=== PATIENT | female | born 1935 | race Caucasian/White ===

== ENCOUNTER 2016-05-20 19:09 | Emergency (ER) | payer MEDICARE, OTHER ==
--- NOTE | 2016-05-20 21:10 | REPUSA ---
Clinical history: Pain, swelling. Findings: The right common femoral, superficial femoral, popliteal, and other deep venous structures compress normally and demonstrate normal color Doppler flow. Normal venous waveforms with augmentatio n are seen. Impression: No evidence of deep vein thrombosis in the right femoral popliteal venous system.
[2016-05-20] MEDS ORDERED: ACETAMINOPHEN 325 MG TAB As Ordered ONE (22:46)
--- NOTE | 2016-05-20 22:56 | EDDOCDS ---
Nurse's Notes [facility] Name: Dariana Ribera Age: 80 yrs Sex: Female : 1935 Arrival Date: 05/20/2016 Time: 19:09 Bed PR Private MD: NO PRIMARY PHYSICIAN, . Diagnosis: Pain in right leg Presentation: 05/20 19:17 Presenting complaint: Patient states: Pain that began in right hip radiating down her lf1 leg on Friday night, states pain is not getting better and she has noticed swelling in her right leg. Pain is currently 4/10 while sitting and 7/10 while walking. Pt reports no injury. Adult Sepsis Screening: The patient does not have new or worsening altered mentation. Patient's respiratory rate is less than 22. Systolic blood pressure is greater than 100. Patient has a qSOFA score of 0- Negative Sepsis Screen. Suicide/Homicide risk assessment- the patient denies having any suicidal and/or homicidal ideations and does not present with any other emotional, behavioral or mental health complaints. Status: Patient is not a pharmacy services representative or dependent. Transition of care: patient was not received from another setting of care. 19:17 Acuity: NATHANAEL Level 3 lf1 19:17 Method Of Arrival: Walkin/Carried/Asstd lf1 Triage Assessment: 19:24 General: Appears in no apparent distress, comfortable, Behavior is cooperative. Pain: lf1 Location: right hip and leg Pain currently is 4 out of 10 on a pain scale. At worst was 7 out of 10 on a pain scale. Neurological: Level of Consciousness is awake, alert, Oriented to person, place, time. Cardiovascular: Chest pain is denied. Respiratory: Respiratory effort is even, unlabored. GI: Denies nausea, vomiting. Derm: Parent/caregiver reports the patient having swelling in right leg/thigh. Injury Description: No known injury. Historical: - Allergies: No known drug Allergies; - Home Meds: 1. atorvastatin 10 mg oral tab 2. levothyroxine 50 mcg oral cap 3. Celexa 20 mg oral tab 4. Flonase 50 mcg/actuation Nasal spsn 1 spray 2 times per day 5. omeprazole 20 mg Oral cpDR 1 cap once daily 6. tramadol 50 mg Oral tab Unknown every 12 as needed - PMHx: High Cholesterol; Hypothyroidism; Chronic Back pain; Osteoporosis; - PSHx: Cholecystectomy; Knee surgery; Hysterectomy; - Social history: Smoking status: Patient states former smoker of tobacco. No barriers to communication noted, The patient speaks fluent Scottish, Speaks appropriately for age, Preferred Language: Scottish. - Family history: Not pertinent. - : The pt / caregiver states he / she is not on anticoagulants. Home medication list is obtained from the patient, Unable to Verify Home Med List with the patient / caregiver. Note Pt reports that she is unsure of her meds but uses [facility] in [place]. - Exposure Risk Screening:: None identified. Screenin:26 Screening information is obtained from the patient. Fall risk: No risks identified. lf1 Assistance ADL's: requires no assistance with activities of daily living. Abuse/DV Screen: The patient / caregiver reports he/she is: not in a situation that causes fear, pain or injury. Nutritional screening: Gluten Free. Advance Directives: Currently, there is a health care proxy, Teo Ribera [phone]. home support is adequate. Assessment: 22:52 General: Appears in no apparent distress, comfortable, well nourished, well groomed, lf1 Behavior is appropriate for age, cooperative, pleasant. Pain: Location: right leg Pain currently is 4 out of 10 on a pain scale. Neurological: Level of Consciousness is awake, alert, obeys commands, Oriented to person, place, time. Respiratory: No deficits noted. Derm: Skin is pink, warm & dry. normal. Vital Signs: 19:13 BP 142 / 67; Pulse 83; Resp 18 S; Temp 97.8(O); Pulse Ox 96% on R/A; Weight 87.09 kg gr2 (R); Height 5 ft. 0 in. (152.40 cm) (R); Pain 6/10; 22:45 Pulse 69; Resp 18; Temp 98.6(TE); Pulse Ox 96% on R/A; Pain 4/10; ar3 22:52 BP 170 / 80; Pulse 69; Resp 18; Temp 98.6; Pulse Ox 98% ; Pain 4/10; lf1 22:52 lf1 19:13 Body Mass Index 37.50 (87.09 kg, 152.40 cm) gr2 22:52 Provider aware of pt's BP lf1 Vitals: 19:13 Log In Time: May 20, 2016 at 19:13. gr2 ED Course: 19:11 Patient visited by Ozzy Johnson. gr2 19:11 Patient moved to Waiting gr2 19:12 NO PRIMARY PHYSICIAN, . is Private Physician. gr2 19:13 Patient visited by Ozzy Johnson. gr2 19:14 Patient moved to Pre RCE gr2 19:19 Triage Initiated lf1 19:31 [address] [facility] in [place] to confirm pt. medications [phone]. lf1 20:10 Patient moved to Triage 1 ms18 20:13 Chuck Leslie PA-C is PHCP. jk8 20:13 Francois Lai DO is Attending Physician. jk8 20:13 Patient visited by Chuck Leslie PA-C. jk8 20:34 Patient moved to TR4 ms18 20:50 Patient moved to Ultrasound dmg 21:06 Patient moved to TR4 dmg 21:07 Patient moved to Radiology dmg 21:11 Patient moved to TR4 jada 21:24 [facility] Payment Agreement was scanned into [employer] and attached to record. gjb 21:41 US Lower Extremity R/O DVT Returned. EDMS 22:42 Patient moved to PR1 / 25 ar3 22:46 Patient visited by Peg Parson PCA. ar3 22:52 The patient / caregiver is instructed regarding the plan of care and ED course. lf1 Accompanied by Significant Other, Patient has correct armband on for positive identification. Property sent home with patient. :Personal belongings accompany Pt. 22:52 No IV's were initiated during this patient's visit. No procedures done that require lf1 assistance. Administered Medications: 22:52 Drug: Acetaminophen 650 mg [acetaminophen 325 mg tablet (2 tabs)] Route: PO; lf1 Order Results: Radiology Order: US Lower Extremity R/O DVT Test: US Lower Extremity R/O DVT REASON FOR EXAMINATION: leg pain, acute; ; Clinical history: Pain, swelling.; Findings: The right common femoral, superficial femoral, popliteal, and other deep venous structures; compress normally and demonstrate normal color Doppler flow. Normal venous waveforms with augmentatio; n are seen.; Impression:; No evidence of deep vein thrombosis in the right femoral popliteal venous system.; ; Outcome: 22:41 Discharge ordered by Provider. jk8 22:52 Discharge Assessment: Patient awake, alert and oriented x 3. No cognitive and/or lf1 functional deficits noted. Patient verbalized understanding of disposition instructions. patient administered narcotics - no. The following High Risk Discharge criteria are identified: None. Discharged to home ambulatory. Condition: good Condition: stable Condition: improved. Discharge instructions given to patient, Instructed on discharge instructions, follow up and referral plans. medication usage, Demonstrated understanding of instructions, medications, Pt was receptive of discharge instructions/ teaching. Prescriptions given X 1. Ultrasound Study completed. 22:54 Patient left the ED. lf1 Signatures: Dispatcher [employer] EDMS Lucho Carpio Deanne dmg Ford, LisaRN RN lf1 Peg Parson, STONE SETTER STONE SETTER ar3 Ozzy Johnson gr2 Mariya Rivera RN RN ms18 Chuck Leslie PA-C PALeila jk8 Yue Christian Corrections: (The following items were deleted from the chart) 19:36 19:24 Home Meds: atorvastatin 40 mg oral tab 1 tab once daily; lf1 lf1 19:36 19:24 Home Meds: Levothyroxine Oral once daily; lf1 lf1 19:36 19:24 Home Meds: Celexa 10 mg Oral tab 1 tab once daily; lf1 lf1 22:54 22:52 Pain: Location: left leg Pain currently is 4 out of 10 on a pain scale. lf1 lf1 MTDD
--- NOTE | 2016-05-20 22:56 | EDDOCDS ---
Physician Documentation [facility] Name: Dariana Ribera Age: 80 yrs Sex: Female : 1935 Arrival Date: 05/20/2016 Time: 19:09 Bed PR Private MD: NO PRIMARY PHYSICIAN, . Disposition: 05/20/16 22:41 Discharged to Home/Self Care. Impression: Pain in right leg. - Condition is Stable. - Prescriptions for Tylenol 325 mg Oral Tablet - take 2 tablet by ORAL route every 6 hours as needed; 1 bottle. - Medication Reconciliation, Local Pharmacy Hours form. - Follow up: Emergency Department; When: As soon as possible; Reason: Worsening of conditions. Follow up: Private Physician; When: 1 - 2 days; Reason: Recheck today's complaints. - Problem is new. - Symptoms are unchanged. Historical: - Allergies: No known drug Allergies; - Home Meds: 1. atorvastatin 10 mg oral tab 2. levothyroxine 50 mcg oral cap 3. Celexa 20 mg oral tab 4. Flonase 50 mcg/actuation Nasal spsn 1 spray 2 times per day 5. omeprazole 20 mg Oral cpDR 1 cap once daily 6. tramadol 50 mg Oral tab Unknown every 12 as needed - PMHx: High Cholesterol; Hypothyroidism; Chronic Back pain; Osteoporosis; - PSHx: Cholecystectomy; Knee surgery; Hysterectomy; - Social history: Smoking status: Patient states former smoker of tobacco. No barriers to communication noted, The patient speaks fluent Turkish, Speaks appropriately for age, Preferred Language: Turkish. - Family history: Not pertinent. - : The pt / caregiver states he / she is not on anticoagulants. Home medication list is obtained from the patient, Unable to Verify Home Med List with the patient / caregiver. Note Pt reports that she is unsure of her meds but uses [facility] in [place]. - Exposure Risk Screening:: None identified. Vital Signs: 05/20 19:13 BP 142 / 67; Pulse 83; Resp 18 S; Temp 97.8(O); Pulse Ox 96% on R/A; Weight 87.09 kg / gr2 192 lbs (R); Height 5 ft. 0 in. (152.40 cm) (R); Pain 6/10; 22:45 Pulse 69; Resp 18; Temp 98.6(TE); Pulse Ox 96% on R/A; Pain 4/10; ar3 22:52 BP 170 / 80; Pulse 69; Resp 18; Temp 98.6; Pulse Ox 98% ; Pain 4/10; lf1 22:52 lf1 19:13 Body Mass Index 37.50 (87.09 kg, 152.40 cm) gr2 22:52 Provider aware of pt's BP lf1 MDM: 20:24 US Lower Extremity R/O DVT Ordered. EDMS 20:24 Hip,AP,LAT to include Pelvis Ordered. EDMS 20:26 Femur Ordered. EDMS 20:26 Spine. Lumbosacral, Complete Ordered. EDMS 21:17 Financial registration complete. gjb 21:24 [facility] Payment Agreement was scanned into [employer] and attached to record. gjb 22:29 US Lower Extremity R/O DVT Reviewed. jk8 22:37 Hip,AP,LAT to include Pelvis Reviewed. jk8 22:38 Femur Reviewed. jk8 22:38 Spine. Lumbosacral, Complete Reviewed. jk8 22:42 Acetaminophen Tablet 650 mg PO once ordered. jk8 Administered Medications: 22:52 Drug: Acetaminophen 650 mg [acetaminophen 325 mg tablet (2 tabs)] Route: PO; lf1 Signatures: Dispatcher [employer] EDMS Dottie Gonzales RN RN lf1 Chuck Leslie PA-C PA-C jk8 Beck, Gabriela gjb The chart was reviewed and I authenticate all verbal orders and agree with the evaluation and treatment provided.Corrections: (The following items were deleted from the chart) 19:36 19:24 Home Meds: atorvastatin 40 mg oral tab 1 tab once daily; 1 lf1 19:36 19:24 Home Meds: Levothyroxine Oral once daily; 1 lf1 19:36 19:24 Home Meds: Celexa 10 mg Oral tab 1 tab once daily; 1 lf1 Attachments: 21:24 [facility] Payment Agreement gjb MTDD
--- NOTE | 2016-05-21 09:09 | REP ---
Lumbar spine radiographs: Five views. History: Right leg radiculopathy. Comparison study December 09, 2014. Findings: There are clips in the right upper and right lower quadrant of the abdomen as before. A dextroconvex rotoscoliotic curve is seen in the lumbar spine unchanged. There is diffuse degenerative disc disease and osteoarthritic facet changes are noted status quo as well. No fracture or collapse is seen. There are vacuum phenomenon in each of the lumbar discs. Osteoarthritic facet changes are most pronounced at L5-S1 bilaterally. No bony destructive lesion is seen. Psoas margins are symmetric. Sacrum and SI joints are intact. There is vascular calcification in a normal caliber aorta. Impression: Degenerative spondylosis and scoliosis in the lumbar spine essentially unchanged from the December 09, 2014 prior study. No acute abnormality. Signed by Adolfo Villarreal MD 05/21/2016 12:30 P
--- NOTE | 2016-05-21 09:20 | REP ---
RIGHT FEMUR SERIES: Four views. HISTORY: Right leg pain. FINDINGS: AP and frog-leg views of the proximal femur and AP and lateral views of the distal femur demonstrate that this patient is status post right knee arthroplasty. Knee and hip joints are well aligned. Hip joint space is preserved. No fracture or erosive change is seen. There is mild sclerosis at the symphysis pubis. IMPRESSION: No acute abnormality. Signed by Adolfo Villarreal MD 05/21/2016 12:30 P
--- NOTE | 2016-05-21 09:22 | REP ---
Pelvis, bilateral hip study: Five views. History: Pain in the hip. Findings: AP view of the pelvis shows an intact bony pelvic ring. There are mild degenerative changes in the symphysis pubis. Degenerative spondylosis changes are seen in the lower lumbar spine. There is mild diffuse osteopenia. Hip joint spaces are preserved. No pelvic or hip or sacral fracture is seen. Femoral heads are smooth and rounded bilaterally. Impression: No acute bony abnormality. Signed by Adolfo Villarreal MD 05/21/2016 12:30 P
--- NOTE | 2016-05-22 23:56 | EDDOCDS ---
Physician Documentation [facility] Name: Dariana Ribera Age: 80 yrs Sex: Female : 1935 Arrival Date: 05/20/2016 Time: 19:09 Bed PR Private MD: NO PRIMARY PHYSICIAN, . Disposition: 05/20/16 22:41 Discharged to Home/Self Care. Impression: Pain in right leg. - Condition is Stable. - Prescriptions for Tylenol 325 mg Oral Tablet - take 2 tablet by ORAL route every 6 hours as needed; 1 bottle. - Medication Reconciliation, Local Pharmacy Hours form. - Follow up: Emergency Department; When: As soon as possible; Reason: Worsening of conditions. Follow up: Private Physician; When: 1 - 2 days; Reason: Recheck today's complaints. - Problem is new. - Symptoms are unchanged. Historical: - Allergies: No known drug Allergies; - Home Meds: 1. atorvastatin 10 mg oral tab 2. levothyroxine 50 mcg oral cap 3. Celexa 20 mg oral tab 4. Flonase 50 mcg/actuation Nasal spsn 1 spray 2 times per day 5. omeprazole 20 mg Oral cpDR 1 cap once daily 6. tramadol 50 mg Oral tab Unknown every 12 as needed - PMHx: High Cholesterol; Hypothyroidism; Chronic Back pain; Osteoporosis; - PSHx: Cholecystectomy; Knee surgery; Hysterectomy; - Social history: Smoking status: Patient states former smoker of tobacco. No barriers to communication noted, The patient speaks fluent Omani, Speaks appropriately for age, Preferred Language: Omani. - Family history: Not pertinent. - : The pt / caregiver states he / she is not on anticoagulants. Home medication list is obtained from the patient, Unable to Verify Home Med List with the patient / caregiver. Note Pt reports that she is unsure of her meds but uses [facility] in [place]. - Exposure Risk Screening:: None identified. Vital Signs: 05/20 19:13 BP 142 / 67; Pulse 83; Resp 18 S; Temp 97.8(O); Pulse Ox 96% on R/A; Weight 87.09 kg / gr2 192 lbs (R); Height 5 ft. 0 in. (152.40 cm) (R); Pain 6/10; 22:45 Pulse 69; Resp 18; Temp 98.6(TE); Pulse Ox 96% on R/A; Pain 4/10; ar3 22:52 BP 170 / 80; Pulse 69; Resp 18; Temp 98.6; Pulse Ox 98% ; Pain 4/10; lf1 22:52 lf1 19:13 Body Mass Index 37.50 (87.09 kg, 152.40 cm) gr2 22:52 Provider aware of pt's BP lf1 MDM: 20:24 US Lower Extremity R/O DVT Ordered. EDMS 20:24 Hip,AP,LAT to include Pelvis Ordered. EDMS 20:26 Femur Ordered. EDMS 20:26 Spine. Lumbosacral, Complete Ordered. EDMS 21:17 Financial registration complete. gjb 21:24 COUNTS INCLUDE 234 BEDS AT THE [facility] Payment Agreement was scanned into [employer] and attached to record. gjb 22:29 US Lower Extremity R/O DVT Reviewed. jk8 22:37 Hip,AP,LAT to include Pelvis Reviewed. jk8 22:38 Femur Reviewed. jk8 22:38 Spine. Lumbosacral, Complete Reviewed. jk8 22:42 Acetaminophen Tablet 650 mg PO once ordered. jk8 05/21 10:23 T-Sheet-- Draft Copy was scanned into [employer] and attached to record. gb 11:40 Radiology Report was scanned into [employer] and attached to record. gb Administered Medications: 05/20 22:52 Drug: Acetaminophen 650 mg [acetaminophen 325 mg tablet (2 tabs)] Route: PO; lf1 Signatures: Dispatcher Med[employer] EDCT Tana Marquez, Reg Reg Dottie Cunningham RN RN lf1 Chuck Leslie PA-C PA-C jk8 Beck, Gabriela gjb The chart was reviewed and I authenticate all verbal orders and agree with the evaluation and treatment provided.Corrections: (The following items were deleted from the chart) 19:36 19:24 Home Meds: atorvastatin 40 mg oral tab 1 tab once daily; lf1 lf1 19:36 19:24 Home Meds: Levothyroxine Oral once daily; lf1 lf1 19:36 19:24 Home Meds: Celexa 10 mg Oral tab 1 tab once daily; lf1 lf1 Attachments: 21:24 COUNTS INCLUDE 234 BEDS AT THE [facility] Payment Agreement [facility] 05/21 10:23 T-Sheet-- Draft Copy gb Chart Complete MTDD
--- NOTE | 2016-05-22 23:56 | EDDOCDS ---
Physician Documentation [facility] Name: Dariana Ribera Age: 80 yrs Sex: Female : 1935 Arrival Date: 05/20/2016 Time: 19:09 Bed PR Private MD: NO PRIMARY PHYSICIAN, . Disposition: 05/20/16 22:41 Discharged to Home/Self Care. Impression: Pain in right leg. - Condition is Stable. - Prescriptions for Tylenol 325 mg Oral Tablet - take 2 tablet by ORAL route every 6 hours as needed; 1 bottle. - Medication Reconciliation, Local Pharmacy Hours form. - Follow up: Emergency Department; When: As soon as possible; Reason: Worsening of conditions. Follow up: Private Physician; When: 1 - 2 days; Reason: Recheck today's complaints. - Problem is new. - Symptoms are unchanged. Historical: - Allergies: No known drug Allergies; - Home Meds: 1. atorvastatin 10 mg oral tab 2. levothyroxine 50 mcg oral cap 3. Celexa 20 mg oral tab 4. Flonase 50 mcg/actuation Nasal spsn 1 spray 2 times per day 5. omeprazole 20 mg Oral cpDR 1 cap once daily 6. tramadol 50 mg Oral tab Unknown every 12 as needed - PMHx: High Cholesterol; Hypothyroidism; Chronic Back pain; Osteoporosis; - PSHx: Cholecystectomy; Knee surgery; Hysterectomy; - Social history: Smoking status: Patient states former smoker of tobacco. No barriers to communication noted, The patient speaks fluent Pakistani, Speaks appropriately for age, Preferred Language: Pakistani. - Family history: Not pertinent. - : The pt / caregiver states he / she is not on anticoagulants. Home medication list is obtained from the patient, Unable to Verify Home Med List with the patient / caregiver. Note Pt reports that she is unsure of her meds but uses [facility] in [place]. - Exposure Risk Screening:: None identified. Vital Signs: 05/20 19:13 BP 142 / 67; Pulse 83; Resp 18 S; Temp 97.8(O); Pulse Ox 96% on R/A; Weight 87.09 kg / gr2 192 lbs (R); Height 5 ft. 0 in. (152.40 cm) (R); Pain 6/10; 22:45 Pulse 69; Resp 18; Temp 98.6(TE); Pulse Ox 96% on R/A; Pain 4/10; ar3 22:52 BP 170 / 80; Pulse 69; Resp 18; Temp 98.6; Pulse Ox 98% ; Pain 4/10; lf1 22:52 lf1 19:13 Body Mass Index 37.50 (87.09 kg, 152.40 cm) gr2 22:52 Provider aware of pt's BP lf1 MDM: 20:24 US Lower Extremity R/O DVT Ordered. EDMS 20:24 Hip,AP,LAT to include Pelvis Ordered. EDMS 20:26 Femur Ordered. EDMS 20:26 Spine. Lumbosacral, Complete Ordered. EDMS 21:17 Financial registration complete. gjb 21:24 [facility] Payment Agreement was scanned into [employer] and attached to record. gjb 22:29 US Lower Extremity R/O DVT Reviewed. jk8 22:37 Hip,AP,LAT to include Pelvis Reviewed. jk8 22:38 Femur Reviewed. jk8 22:38 Spine. Lumbosacral, Complete Reviewed. jk8 22:42 Acetaminophen Tablet 650 mg PO once ordered. jk8 05/21 10:23 T-Sheet-- Draft Copy was scanned into [employer] and attached to record. gb 11:40 Radiology Report was scanned into [employer] and attached to record. gb Administered Medications: 05/20 22:52 Drug: Acetaminophen 650 mg [acetaminophen 325 mg tablet (2 tabs)] Route: PO; lf1 Signatures: Dispatcher [employer] EDOK Tana Marquez, Reg Reg Dottie Cunningham RN RN lf1 Chuck Leslie PA-C PA-C jk8 Beck, Gabriela gjb The chart was reviewed and I authenticate all verbal orders and agree with the evaluation and treatment provided.Corrections: (The following items were deleted from the chart) 19:36 19:24 Home Meds: atorvastatin 40 mg oral tab 1 tab once daily; lf1 lf1 19:36 19:24 Home Meds: Levothyroxine Oral once daily; lf1 lf1 19:36 19:24 Home Meds: Celexa 10 mg Oral tab 1 tab once daily; lf1 lf1 Attachments: 21:24 [facility] Payment Agreement [facility] 05/21 10:23 T-Sheet-- Draft Copy gb Chart Complete MTDD
--- NOTE | 2016-05-22 23:56 | EDDOCDS ---
Nurse's Notes [facility] Name: Dariana Ribera Age: 80 yrs Sex: Female : 1935 Arrival Date: 05/20/2016 Time: 19:09 Bed PR Private MD: NO PRIMARY PHYSICIAN, . Diagnosis: Pain in right leg Presentation: 05/20 19:17 Presenting complaint: Patient states: Pain that began in right hip radiating down her lf1 leg on Friday night, states pain is not getting better and she has noticed swelling in her right leg. Pain is currently 4/10 while sitting and 7/10 while walking. Pt reports no injury. Adult Sepsis Screening: The patient does not have new or worsening altered mentation. Patient's respiratory rate is less than 22. Systolic blood pressure is greater than 100. Patient has a qSOFA score of 0- Negative Sepsis Screen. Suicide/Homicide risk assessment- the patient denies having any suicidal and/or homicidal ideations and does not present with any other emotional, behavioral or mental health complaints. Status: Patient is not a service writer or dependent. Transition of care: patient was not received from another setting of care. 19:17 Acuity: NATHANAEL Level 3 lf1 19:17 Method Of Arrival: Walkin/Carried/Asstd lf1 Triage Assessment: 19:24 General: Appears in no apparent distress, comfortable, Behavior is cooperative. Pain: lf1 Location: right hip and leg Pain currently is 4 out of 10 on a pain scale. At worst was 7 out of 10 on a pain scale. Neurological: Level of Consciousness is awake, alert, Oriented to person, place, time. Cardiovascular: Chest pain is denied. Respiratory: Respiratory effort is even, unlabored. GI: Denies nausea, vomiting. Derm: Parent/caregiver reports the patient having swelling in right leg/thigh. Injury Description: No known injury. Historical: - Allergies: No known drug Allergies; - Home Meds: 1. atorvastatin 10 mg oral tab 2. levothyroxine 50 mcg oral cap 3. Celexa 20 mg oral tab 4. Flonase 50 mcg/actuation Nasal spsn 1 spray 2 times per day 5. omeprazole 20 mg Oral cpDR 1 cap once daily 6. tramadol 50 mg Oral tab Unknown every 12 as needed - PMHx: High Cholesterol; Hypothyroidism; Chronic Back pain; Osteoporosis; - PSHx: Cholecystectomy; Knee surgery; Hysterectomy; - Social history: Smoking status: Patient states former smoker of tobacco. No barriers to communication noted, The patient speaks fluent Sammarinese, Speaks appropriately for age, Preferred Language: Sammarinese. - Family history: Not pertinent. - : The pt / caregiver states he / she is not on anticoagulants. Home medication list is obtained from the patient, Unable to Verify Home Med List with the patient / caregiver. Note Pt reports that she is unsure of her meds but uses [facility] in [place]. - Exposure Risk Screening:: None identified. Screenin:26 Screening information is obtained from the patient. Fall risk: No risks identified. lf1 Assistance ADL's: requires no assistance with activities of daily living. Abuse/DV Screen: The patient / caregiver reports he/she is: not in a situation that causes fear, pain or injury. Nutritional screening: Gluten Free. Advance Directives: Currently, there is a health care proxy, Teo Ribera [phone]. home support is adequate. Assessment: 22:52 General: Appears in no apparent distress, comfortable, well nourished, well groomed, lf1 Behavior is appropriate for age, cooperative, pleasant. Pain: Location: right leg Pain currently is 4 out of 10 on a pain scale. Neurological: Level of Consciousness is awake, alert, obeys commands, Oriented to person, place, time. Respiratory: No deficits noted. Derm: Skin is pink, warm & dry. normal. Vital Signs: 19:13 BP 142 / 67; Pulse 83; Resp 18 S; Temp 97.8(O); Pulse Ox 96% on R/A; Weight 87.09 kg gr2 (R); Height 5 ft. 0 in. (152.40 cm) (R); Pain 6/10; 22:45 Pulse 69; Resp 18; Temp 98.6(TE); Pulse Ox 96% on R/A; Pain 4/10; ar3 22:52 BP 170 / 80; Pulse 69; Resp 18; Temp 98.6; Pulse Ox 98% ; Pain 4/10; lf1 22:52 lf1 19:13 Body Mass Index 37.50 (87.09 kg, 152.40 cm) gr2 22:52 Provider aware of pt's BP lf1 Vitals: 19:13 Log In Time: May 20, 2016 at 19:13. gr2 ED Course: 19:11 Patient visited by Ozzy Johnson. gr2 19:11 Patient moved to Waiting gr2 19:12 NO PRIMARY PHYSICIAN, . is Private Physician. gr2 19:13 Patient visited by Ozzy Johnson. gr2 19:14 Patient moved to Pre RCE gr2 19:19 Triage Initiated lf1 19:31 [address] [facility] in [place] to confirm pt. medications [phone]. lf1 20:10 Patient moved to Triage 1 ms18 20:13 Chuck Leslie PA-C is PHCP. jk8 20:13 Francois Lai DO is Attending Physician. jk8 20:13 Patient visited by Chuck Leslie PA-C. jk8 20:34 Patient moved to TR4 ms18 20:50 Patient moved to Ultrasound dmg 21:06 Patient moved to TR4 dmg 21:07 Patient moved to Radiology dmg 21:11 Patient moved to TR4 jada 21:24 [facility] [place] was scanned into [employer] and attached to record. gjb 21:41 US Lower Extremity R/O DVT Returned. EDMS 22:42 Patient moved to PR1 / 25 ar3 22:46 Patient visited by Peg Parosn PCA. ar3 22:52 The patient / caregiver is instructed regarding the plan of care and ED course. lf1 Accompanied by Significant Other, Patient has correct armband on for positive identification. Property sent home with patient. :Personal belongings accompany Pt. 22:52 No IV's were initiated during this patient's visit. No procedures done that require lf1 assistance. 05/21 09:23 Spine. Lumbosacral, Complete Returned. EDMS 09:23 Femur Returned. EDMS 09:23 Hip,AP,LAT to include Pelvis Returned. EDMS 10:23 T-Sheet-- Draft Copy was scanned into [employer] and attached to record. gb 11:40 Radiology Report was scanned into [employer] and attached to record. gb Administered Medications: 05/20 22:52 Drug: Acetaminophen 650 mg [acetaminophen 325 mg tablet (2 tabs)] Route: PO; lf1 Order Results: Radiology Order: US Lower Extremity R/O DVT Test: US Lower Extremity R/O DVT REASON FOR EXAMINATION: leg pain, acute; ; Clinical history: Pain, swelling.; Findings: The right common femoral, superficial femoral, popliteal, and other deep venous structures; compress normally and demonstrate normal color Doppler flow. Normal venous waveforms with augmentatio; n are seen.; Impression:; No evidence of deep vein thrombosis in the right femoral popliteal venous system.; ; Radiology Order: Hip,AP,LAT to include Pelvis Test: Hip,AP,LAT to include Pelvis REASON FOR EXAMINATION: pain hip, right; Pelvis, bilateral hip study: Five views.; ; History: Pain in the hip.; ; Findings: AP view of the pelvis shows an intact bony pelvic ring. There are; mild degenerative changes in the symphysis pubis. Degenerative spondylosis; changes are seen in the lower lumbar spine. There is mild diffuse osteopenia.; Hip joint spaces are preserved. No pelvic or hip or sacral fracture is seen.; Femoral heads are smooth and rounded bilaterally.; ; Impression:; ; No acute bony abnormality.; ; ; Signed by; Adolfo Villarreal MD 05/21/2016 12:30 P; Radiology Order: Femur Test: Femur REASON FOR EXAMINATION: right leg pain; RIGHT FEMUR SERIES: Four views.; ; HISTORY: Right leg pain.; ; FINDINGS: AP and frog-leg views of the proximal femur and AP and lateral views; of the distal femur demonstrate that this patient is status post right knee; arthroplasty. Knee and hip joints are well aligned. Hip joint space is; preserved. No fracture or erosive change is seen. There is mild sclerosis at; the symphysis pubis.; ; IMPRESSION: No acute abnormality.; ; ; Signed by; Adolfo Villarreal MD 05/21/2016 12:30 P; Radiology Order: Spine. Lumbosacral, Complete Test: Spine. Lumbosacral, Complete REASON FOR EXAMINATION: ? Radiculopathy right leg; Lumbar spine radiographs: Five views.; ; History: Right leg radiculopathy.; ; Comparison study December 09, 2014.; ; Findings: There are clips in the right upper and right lower quadrant of the; abdomen as before. A dextroconvex rotoscoliotic curve is seen in the lumbar; spine unchanged. There is diffuse degenerative disc disease and osteoarthritic; facet changes are noted status quo as well. No fracture or collapse is seen.; There are vacuum phenomenon in each of the lumbar discs. Osteoarthritic facet; changes are most pronounced at L5-S1 bilaterally. No bony destructive lesion is; seen. Psoas margins are symmetric. Sacrum and SI joints are intact. There is; vascular calcification in a normal caliber aorta.; ; Impression:; ; Degenerative spondylosis and scoliosis in the lumbar spine essentially unchanged; from the December 09, 2014 prior study. No acute abnormality.; ; ; Signed by; Adolfo Villarreal MD 05/21/2016 12:30 P; Outcome: 22:41 Discharge ordered by Provider. jk8 22:52 Discharge Assessment: Patient awake, alert and oriented x 3. No cognitive and/or lf1 functional deficits noted. Patient verbalized understanding of disposition instructions. patient administered narcotics - no. The following High Risk Discharge criteria are identified: None. Discharged to home ambulatory. Condition: good Condition: stable Condition: improved. Discharge instructions given to patient, Instructed on discharge instructions, follow up and referral plans. medication usage, Demonstrated understanding of instructions, medications, Pt was receptive of discharge instructions/ teaching. Prescriptions given X 1. Ultrasound Study completed. 22:54 Patient left the ED. 1 Signatures: Dispatcher [employer] EDMS Lucho Carpio Deanne dmg Barnhardt, Gloria, Colby Reg Dottie Cunningham,RN RN lf1 Peg Parson, RESIDENTIAL LEASING AGENT RESIDENTIAL LEASING AGENT ar3 Ozzy Johnson gr2 Mariya Rivera RN RN ms18 Chuck Leslie PA-C PA-C jk8 Yue Christian Corrections: (The following items were deleted from the chart) 19:36 19:24 Home Meds: atorvastatin 40 mg oral tab 1 tab once daily; lf1 lf1 19:36 19:24 Home Meds: Levothyroxine Oral once daily; 1 lf1 19:36 19:24 Home Meds: Celexa 10 mg Oral tab 1 tab once daily; 1 lf1 22:54 22:52 Pain: Location: left leg Pain currently is 4 out of 10 on a pain scale. 1 1 Chart Complete MTDD
== END 2016-05-20 22:54 | disposition home or self-care (01) ==
LOC: M ED 19:09
DX: M79.604 Pain in right leg (principal); M85.859 Other specified disorders of bone density and structure, unspecified thigh; M81.0 Age-related osteoporosis without current pathological fracture; G89.29 Other chronic pain; E78.00 Pure hypercholesterolemia, unspecified; E03.9 Hypothyroidism, unspecified; Z90.49 Acquired absence of other specified parts of digestive tract; Z90.79 Acquired absence of other genital organ(s); Z87.891 Personal history of nicotine dependence; Z79.899 Other long term (current) drug therapy

== ENCOUNTER → 2016-09-30 | Outpatient (REF) | payer MEDICARE, OTHER ==
[2016-09-30 16:03] LABS: ALBUMIN 3.7 GM/DL (3.2-5.2); ALBUMIN/GLOBULIN RATIO 1.12 (1.00-1.93); ALKALINE PHOSPHATASE 69 U/L (45-117); ALT/SGPT 31 U/L (12-78); ANION GAP 8 MEQ/L (8-16); AST/SGOT 26 U/L (15-37); BILIRUBIN,TOTAL 0.6 MG/DL (0.2-1.0); BLOOD UREA NITROGEN 11 MG/DL (7-18); CALCIUM LEVEL 9.4 MG/DL (8.8-10.2); CARBON DIOXIDE LEVEL 29 MEQ/L (21-32); CHLORIDE LEVEL 106 MEQ/L (98-107); CHOLESTEROL LEVEL 209 MG/DL (<200); CREATININE FOR GFR 0.95 MG/DL (0.55-1.02); GLOMERULAR FILTRATION RATE > 60.0 (>39); GLUCOSE, FASTING 83 MG/DL (83-110); POTASSIUM SERUM 4.5 MEQ/L (3.5-5.1); SODIUM LEVEL 143 MEQ/L (136-145); TRIGLYCERIDES LEVEL 156 MG/DL (<150)
== END ==
LOC: M SFHCSACK 08:59
PROVIDERS: ATTEND Physician Assistant
DX: E78.5 Hyperlipidemia, unspecified (principal); E03.9 Hypothyroidism, unspecified; E55.9 Vitamin D deficiency, unspecified

== ENCOUNTER → 2016-11-26 | Outpatient (CLI) | payer MEDICARE, OTHER ==
[2016-11-26 20:18] LABS: BLOOD UREA NITROGEN 19 MG/DL (7-18); CREATININE FOR GFR 0.83 MG/DL (0.55-1.02); GLOMERULAR FILTRATION RATE > 60.0 (>39)
== END ==
LOC: M WUC 14:45
PROVIDERS: ATTEND Radiology Radiation Oncology
DX: D32.9 Benign neoplasm of meninges, unspecified (principal)

== ENCOUNTER → 2016-11-29 | Outpatient (CLI) | payer MEDICARE, OTHER ==
--- NOTE | 2016-11-29 11:24 | REP ---
MRI BRAIN WITHOUT AND WITH CONTRAST: HISTORY: Meningioma. CONTRAST: ProHance 16 mL. COMPARISON: 09/01/2014 and 11/17/2015. An area of increased signal intensity on T2-weighted images is present in the right thalamus. This represents an old lacunar infarction. Areas of increased signal intensity on T2-weighted images are present in the periventricular and subcortical white matter and violet. This represents small vessel ischemic disease. There is no intraparenchymal hemorrhage, acute infarct or midline shift. The ventricular system is normal in appearance. There is no extracerebral collection. A small meningioma is present overlying the left frontal lobe convexity. The meningioma measures 12 x 5 x 11 mm and is unchanged in size compared to the previous study. A meningioma is present in the left parasellar region. The meningioma measures 6 mm in transverse by 22 mm in AP dimensions and is slightly increased in size compared to the previous study. There is posterior extension along the clivus into the left lateral aspect of the prepontine cistern. There is inferior extension into the left Meckel's cave. Mucosal thickening is present in the mastoid air cells and left ethmoid sinus. IMPRESSION: 1. 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 2. Small vessel ischemic disease. 3. There has been no change in size of the small left frontal lobe convexity meningioma. 4. There has been a slight increase in size of the left parasellar meningioma compared to the previous study. Signed by Rob Gutierrez MD 11/29/2016 11:29 A
== END ==
LOC: M RAD 08:36
PROVIDERS: ATTEND Radiology Radiation Oncology
DX: D32.9 Benign neoplasm of meninges, unspecified (principal)
CPT/HCPCS: 70553; A9576

== ENCOUNTER → 2016-12-13 | Outpatient (CLI) | payer MEDICARE, OTHER ==
--- NOTE | 2016-12-13 12:04 | REP ---
LEFT WRIST COMPLETE: 12/13/2016. CLINICAL HISTORY: Trauma, patient fell. Pain posterior lateral aspect of the wrist. FINDINGS: No prior study. 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 There is sclerosis at the articular margins. I do not see a definite fracture of the carpal bones nor avulsion. Lesser degenerative changes at other CMC joints. No acute fractures of the metacarpals. Some minor degenerative changes of the MCP and IP joints visible. The distal radius and ulna are without fracture. There is some soft tissue swelling over the dorsal aspect of the wrist. IMPRESSION: 1. Advanced osteoarthritic change at the first CMC joint with degenerative changes to a much lesser degree in other joints about the wrist and hand but no acute fracture. 2. Soft tissue swelling dorsal aspect of the wrist without visible avulsion. Signed by Jose Sandoval MD 12/13/2016 05:17 P
--- NOTE | 2016-12-13 12:09 | REP ---
FACIAL BONES COMPLETE: 12/13/2016. COMPARISON: Skull series this date and CT maxillofacial 04/30/2012. FINDINGS: Seven views are provided. Maxilla is edentulous. Extensive dental appliances over the mandible. Orbital floors intact. The orbital struts, medial orbital bowman and zygomatic arches are intact. I do not see opacification of the frontal, ethmoid, sphenoid or maxillary sinuses. No air-fluid levels. Mastoid aeration symmetric. Visible mandible show no gross fracture. IMPRESSION: 1. No fracture about the orbits, sinus bowman, zygomatic arch or mandible. Remainder the visualized facial bones and portions of the anterior skull included are unremarkable. Signed by Jose Sandoval MD 12/13/2016 05:17 P
--- NOTE | 2016-12-13 12:10 | REP ---
Skull series: Six views. History: Contusion. Findings: The bony calvarium appears intact. No skull fracture or incidental destructive lesion is seen. The maxilla is edentulous. Impression: Negative skull series. Signed by Aodlfo Villarreal MD 12/13/2016 01:55 P
== END ==
LOC: M WUC 10:48
PROVIDERS: ATTEND Physician Assistant
DX: S60.212A Contusion of left wrist, initial encounter (principal); S00.03XA Contusion of scalp, initial encounter; S00.33XA Contusion of nose, initial encounter; X58.XXXA Exposure to other specified factors, initial encounter; Y92.89 Other specified places as the place of occurrence of the external cause; Y99.9 Unspecified external cause status; Y93.9 Activity, unspecified

== ENCOUNTER → 2016-12-13 | Outpatient (CLI) | payer MEDICARE, OTHER ==
--- NOTE | 2016-12-13 12:38 | REP ---
CT Head without contrast HISTORY: Trauma COMPARISON: 04/24 An area of decreased attenuation is present in the right thalamus. This represents an old lacunar infarction. Areas of decreased attenuation are present in the periventricular and subcortical white matter. This represents small-vessel ischemic disease. There is no intraparenchymal hemorrhage, acute infarct, mass or midline shift. The ventricular system is normal in appearance. There is no extra cerebral collection. There is no fracture. Minimal mucosal thickening is present in the left ethmoid sinus. IMPRESSION: 1. 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 2. Small vessel ischemic disease. Signed by Rob Gutierrez MD 12/13/2016 12:30 P
== END ==
LOC: M RAD 11:59
PROVIDERS: ATTEND Physician Assistant
DX: S60.212A Contusion of left wrist, initial encounter (principal); S00.33XA Contusion of nose, initial encounter; S00.03XA Contusion of scalp, initial encounter; X58.XXXA Exposure to other specified factors, initial encounter; Y92.89 Other specified places as the place of occurrence of the external cause; Y99.9 Unspecified external cause status; Y93.9 Activity, unspecified

== ENCOUNTER → 2016-12-25 | Outpatient (REF) | payer MEDICARE, OTHER ==
[2016-12-25 17:59] LABS: ALBUMIN 3.9 GM/DL (3.2-5.2); ALKALINE PHOSPHATASE 64 U/L (45-117); ALT/SGPT 29 U/L (12-78); ANION GAP 10 MEQ/L (8-16); AST/SGOT 22 U/L (15-37); BILIRUBIN,TOTAL 0.7 MG/DL (0.2-1.0); BLOOD UREA NITROGEN 9 MG/DL (7-18); CALCIUM LEVEL 9.2 MG/DL (8.8-10.2); CARBON DIOXIDE LEVEL 27 MEQ/L (21-32); CHLORIDE LEVEL 108 MEQ/L (98-107); CHOLESTEROL LEVEL 165 MG/DL (<200); CREATININE FOR GFR 0.76 MG/DL (0.55-1.02); FREE T4 1.15 NG/DL (0.76-1.46); GLOMERULAR FILTRATION RATE > 60.0 (>39); GLUCOSE, FASTING 88 MG/DL (83-110); POTASSIUM SERUM 4.3 MEQ/L (3.5-5.1); SODIUM LEVEL 145 MEQ/L (136-145); TOTAL PROTEIN 6.9 GM/DL (6.4-8.2); TRIGLYCERIDES LEVEL 154 MG/DL (<150)
[2016-12-25 18:26] LABS: EOS # 0.2 K/mm3 (0.0-0.50); EOS % 4.8 % (0.0-3.0); LARGE UNSTAINED CELL # 0.1 K/mm3 (0.0-0.4); LARGE UNSTAINED CELL % 1.6 % (0.0-4.0); LYMPH # 1.5 K/mm3 (1.5-4.5); LYMPH % 31.6 % (24.0-44.0); MEAN CORPUSCULAR HEMOGLOBIN 30.6 pg (27.0-33.0); MEAN CORPUSCULAR HGB CONC 32.5 g/dl (32.0-36.5); MONO # 0.4 K/mm3 (0.0-0.8); MONO % 7.9 % (0.0-5.0); NEUTROPHILS # 2.3 K/mm3 (1.8-7.7); PLATELET COUNT, AUTOMATED 156 k/mm3 (150-450); RED CELL DISTRIBUTION WIDTH 13.9 % (11.5-14.5); WHITE BLOOD COUNT 4.4 K/mm3 (4.0-10.0)
== END ==
LOC: M SFHCSACK 09:04
PROVIDERS: ATTEND Family Medicine
DX: D64.9 Anemia, unspecified (principal); E78.5 Hyperlipidemia, unspecified; E03.9 Hypothyroidism, unspecified; E78.2 Mixed hyperlipidemia; E55.9 Vitamin D deficiency, unspecified

== ENCOUNTER → 2017-04-02 | Outpatient (REF) | payer MEDICARE, OTHER ==
[2017-04-02 14:58] LABS: BASO # 0.1 10^3/uL (0.0-0.2); BASO % 1.3 % (0.0-1.0); EOS # 0.2 10^3/uL (0.0-0.50); EOS % 4.1 % (0.0-3.0); LYMPH # 2.1 10^3/uL (1.5-4.5); LYMPH % 38.9 % (24.0-44.0); MEAN CORPUSCULAR HEMOGLOBIN 30.8 pg (27.0-33.0); MEAN CORPUSCULAR VOLUME 93.4 fl (80.0-96.0); MONO # 0.5 10^3/uL (0.0-0.8); MONO % 9.9 % (0.0-5.0); NEUTROPHILS # 2.5 10^3/uL (1.8-7.7); NEUTROPHILS % 45.8 % (36.0-66.0); PLATELET COUNT, AUTOMATED 157 10^3/uL (150-450); RED CELL DISTRIBUTION WIDTH 14.2 % (11.5-14.5); WHITE BLOOD COUNT 5.4 10^3/uL (4.0-10.0)
[2017-04-02 15:33] LABS: ALBUMIN 3.8 GM/DL (3.2-5.2); ALBUMIN/GLOBULIN RATIO 1.23 (1.00-1.93); ALKALINE PHOSPHATASE 63 U/L (45-117); ALT/SGPT 28 U/L (12-78); ANION GAP 6 MEQ/L (8-16); AST/SGOT 26 U/L (7-37); BILIRUBIN,TOTAL 0.6 MG/DL (0.2-1.0); BLOOD UREA NITROGEN 13 MG/DL (7-18); CALCIUM LEVEL 8.9 MG/DL (8.8-10.2); CARBON DIOXIDE LEVEL 31 MEQ/L (21-32); CHLORIDE LEVEL 105 MEQ/L (98-107); CREATININE FOR GFR 0.94 MG/DL (0.55-1.02); FREE T4 0.94 NG/DL (0.76-1.46); GLOMERULAR FILTRATION RATE > 60.0 (>39); GLUCOSE, FASTING 86 MG/DL (83-110); POTASSIUM SERUM 4.8 MEQ/L (3.5-5.1); SODIUM LEVEL 142 MEQ/L (136-145); TOTAL PROTEIN 6.9 GM/DL (6.4-8.2)
== END ==
LOC: M SFHCSACK 08:43
PROVIDERS: ATTEND Physician Assistant
DX: D64.9 Anemia, unspecified (principal); E78.5 Hyperlipidemia, unspecified; E03.9 Hypothyroidism, unspecified

== ENCOUNTER → 2017-06-13 | Outpatient (REF) | payer MEDICARE, OTHER ==
[2017-06-13 15:31] LABS: BASO # 0.1 10^3/uL (0.0-0.2); BASO % 0.7 % (0.0-1.0); EOS # 0.2 10^3/uL (0.0-0.50); EOS % 3.6 % (0.0-3.0); HEMATOCRIT 45.5 % (36.0-47.0); HEMOGLOBIN 14.7 g/dl (12.0-16.0); IMMATURE GRANULOCYTE % 0.1 % (0-3.0); LYMPH # 2.3 10^3/uL (1.5-4.5); LYMPH % 33.6 % (24.0-44.0); MEAN CORPUSCULAR HEMOGLOBIN 30.5 pg (27.0-33.0); MEAN CORPUSCULAR HGB CONC 32.3 g/dl (32.0-36.5); MEAN CORPUSCULAR VOLUME 94.4 fl (80.0-96.0); MONO # 0.5 10^3/uL (0.0-0.8); MONO % 7.7 % (0.0-5.0); NEUTROPHILS # 3.7 10^3/uL (1.8-7.7); NEUTROPHILS % 54.3 % (36.0-66.0); PLATELET COUNT, AUTOMATED 166 10^3/uL (150-450); RED BLOOD COUNT 4.82 10^6/uL (4.00-5.40); RED CELL DISTRIBUTION WIDTH 13.1 % (11.5-14.5); WHITE BLOOD COUNT 6.7 10^3/uL (4.0-10.0)
[2017-06-13 15:46] LABS: ALBUMIN 4.1 GM/DL (3.2-5.2); ALBUMIN/GLOBULIN RATIO 1.21 (1.00-1.93); ALKALINE PHOSPHATASE 75 U/L (45-117); ALT/SGPT 29 U/L (12-78); ANION GAP 7 MEQ/L (8-16); AST/SGOT 33 U/L (7-37); BILIRUBIN,TOTAL 0.4 MG/DL (0.2-1.0); BLOOD UREA NITROGEN 15 MG/DL (7-18); CALCIUM LEVEL 9.3 MG/DL (8.8-10.2); CARBON DIOXIDE LEVEL 30 MEQ/L (21-32); CHLORIDE LEVEL 107 MEQ/L (98-107); CREATININE FOR GFR 0.83 MG/DL (0.55-1.30); FREE T4 1.01 NG/DL (0.76-1.46); GLOMERULAR FILTRATION RATE > 60.0 (>39); GLUCOSE, FASTING 110 MG/DL (70-100); POTASSIUM SERUM 4.2 MEQ/L (3.5-5.1); SODIUM LEVEL 144 MEQ/L (136-145); TOTAL PROTEIN 7.5 GM/DL (6.4-8.2)
== END ==
LOC: M SFHCSACK 08:41
DX: D64.9 Anemia, unspecified (principal); E78.5 Hyperlipidemia, unspecified; E03.9 Hypothyroidism, unspecified
CPT/HCPCS: 84443

== ENCOUNTER → 2017-12-04 | Outpatient (REF) | payer MEDICARE, OTHER ==
[2017-12-04 16:30] LABS: BASO % 0.8 % (0.0-1.0); EOS # 0.2 10^3/uL (0.0-0.50); EOS % 4.6 % (0.0-3.0); HEMATOCRIT 40.9 % (36.0-47.0); HEMOGLOBIN 13.7 g/dl (12.0-15.5); IMMATURE GRANULOCYTE % 0.2 % (0-3.0); LYMPH # 1.6 10^3/uL (1.5-4.5); MEAN CORPUSCULAR HEMOGLOBIN 30.2 pg (27.0-33.0); MEAN CORPUSCULAR HGB CONC 33.5 g/dl (32.0-36.5); MEAN CORPUSCULAR VOLUME 90.1 fl (80.0-96.0); MONO # 0.4 10^3/uL (0.0-0.8); MONO % 7.9 % (0.0-5.0); NEUTROPHILS # 2.6 10^3/uL (1.8-7.7); NEUTROPHILS % 53.5 % (36.0-66.0); PLATELET COUNT, AUTOMATED 168 10^3/uL (150-450); RED BLOOD COUNT 4.54 10^6/uL (4.00-5.40); RED CELL DISTRIBUTION WIDTH 14.1 % (11.5-14.5); WHITE BLOOD COUNT 4.8 10^3/uL (4.0-10.0)
[2017-12-04 17:00] LABS: ESTIMATED AVERAGE GLUCOSE 105 MG/DL (60-110); HEMOGLOBIN A1c 5.3 %
[2017-12-04 17:23] LABS: ALBUMIN 3.6 GM/DL (3.2-5.2); ALBUMIN/GLOBULIN RATIO 1.13 (1.00-1.93); ALKALINE PHOSPHATASE 63 U/L (45-117); ALT/SGPT 24 U/L (12-78); ANION GAP 9 MEQ/L (8-16); AST/SGOT 23 U/L (7-37); BILIRUBIN,TOTAL 0.5 MG/DL (0.2-1.0); BLOOD UREA NITROGEN 23 MG/DL (7-18); CALCIUM LEVEL 8.9 MG/DL (8.8-10.2); CARBON DIOXIDE LEVEL 29 MEQ/L (21-32); CHLORIDE LEVEL 108 MEQ/L (98-107); CREATININE FOR GFR 0.98 MG/DL (0.55-1.30); FREE T4 0.92 NG/DL (0.76-1.46); GLOMERULAR FILTRATION RATE 58.1 (>32); GLUCOSE, FASTING 72 MG/DL (70-100); SODIUM LEVEL 146 MEQ/L (136-145); TOTAL PROTEIN 6.8 GM/DL (6.4-8.2)
== END ==
LOC: M SFHCSACK 08:13
DX: D64.9 Anemia, unspecified (principal); E78.5 Hyperlipidemia, unspecified; E03.9 Hypothyroidism, unspecified; R73.09 Other abnormal glucose
CPT/HCPCS: 84443

== ENCOUNTER → 2017-12-09 | Outpatient (CLI) | payer MEDICARE, OTHER ==
[2017-12-09 19:10] LABS: BLOOD UREA NITROGEN 25 MG/DL (7-18)
[2017-12-09 19:10] LABS: CREATININE FOR GFR 0.85 MG/DL (0.55-1.30); GLOMERULAR FILTRATION RATE > 60.0 (>32)
== END ==
LOC: M WUC 14:48
DX: D32.9 Benign neoplasm of meninges, unspecified (principal)
CPT/HCPCS: 82565

== ENCOUNTER → 2018-02-23 | Outpatient (CLI) | payer MEDICARE, OTHER ==
[2018-02-23 21:42] LABS: ANION GAP 7 MEQ/L (8-16); BLOOD UREA NITROGEN 17 MG/DL (7-18); CALCIUM LEVEL 9.2 MG/DL (8.8-10.2); CARBON DIOXIDE LEVEL 30 MEQ/L (21-32); CHLORIDE LEVEL 104 MEQ/L (98-107); CREATININE FOR GFR 0.86 MG/DL (0.55-1.30); GLOMERULAR FILTRATION RATE > 60.0 (>32); GLUCOSE, FASTING 85 MG/DL (70-100); POTASSIUM SERUM 4.3 MEQ/L (3.5-5.1); SODIUM LEVEL 141 MEQ/L (136-145)
[2018-02-23 21:55] LABS: TOTAL 25(OH) VITAMIN D 23.8 NG/ML (30.0-100.0)
== END ==
LOC: M WUC 17:28
DX: M85.9 Disorder of bone density and structure, unspecified (principal); E55.9 Vitamin D deficiency, unspecified
CPT/HCPCS: 82306

== ENCOUNTER → 2018-05-26 | Outpatient (CLI) | payer MEDICARE, OTHER ==
--- NOTE | 2018-05-26 15:17 | REP ---
KUB, ONE VIEW: HISTORY: Pain. A small amount of air is present in small and large intestine. There are no air-fluid levels or dilated loops of intestine. There is no pneumoperitoneum. Degenerative change is present in the spine. Surgical clips are present in the right upper quadrant. IMPRESSION: Nonspecific bowel gas pattern. Electronically Signed by Rob Gutierrez MD 05/26/2018 03:20 P
[2018-05-26 19:22] LABS: ALBUMIN 4.1 GM/DL (3.2-5.2); ALT/SGPT 29 U/L (12-78); BILIRUBIN,TOTAL 0.4 MG/DL (0.2-1.0); BLOOD UREA NITROGEN 21 MG/DL (7-18); CALCIUM LEVEL 9.5 MG/DL (8.8-10.2); CARBON DIOXIDE LEVEL 32 MEQ/L (21-32); CHLORIDE LEVEL 105 MEQ/L (98-107); CREATININE FOR GFR 0.86 MG/DL (0.55-1.30); FREE T4 0.95 NG/DL (0.76-1.46); GLOMERULAR FILTRATION RATE > 60.0 (>32); GLUCOSE, FASTING 89 MG/DL (70-100); POTASSIUM SERUM 4.8 MEQ/L (3.5-5.1); SODIUM LEVEL 141 MEQ/L (136-145); TOTAL PROTEIN 7.3 GM/DL (6.4-8.2)
[2018-05-26 20:21] LABS: BASO % 0.6 % (0.0-1.0); EOS # 0.2 10^3/uL (0.0-0.50); EOS % 3.2 % (0.0-3.0); HEMATOCRIT 42.8 % (36.0-47.0); HEMOGLOBIN 13.8 g/dl (12.0-15.5); LYMPH # 2.2 10^3/uL (1.5-4.5); LYMPH % 33.2 % (24.0-44.0); MEAN CORPUSCULAR HEMOGLOBIN 28.6 pg (27.0-33.0); MEAN CORPUSCULAR HGB CONC 32.2 g/dl (32.0-36.5); MEAN CORPUSCULAR VOLUME 88.6 fl (80.0-96.0); MONO # 0.6 10^3/uL (0.0-0.8); MONO % 9.3 % (0.0-5.0); NEUTROPHILS # 3.5 10^3/uL (1.8-7.7); NEUTROPHILS % 53.5 % (36.0-66.0); PLATELET COUNT, AUTOMATED 184 10^3/uL (150-450); RED BLOOD COUNT 4.83 10^6/uL (4.00-5.40); WHITE BLOOD COUNT 6.6 10^3/uL (4.0-10.0)
== END ==
LOC: M WUC 14:17
PROVIDERS: ATTEND Physician Assistant
DX: R10.12 Left upper quadrant pain (principal); R06.02 Shortness of breath

== ENCOUNTER → 2018-06-04 | Outpatient (REF) | payer MEDICARE, OTHER ==
[2018-06-04 14:46] LABS: BLOOD UREA NITROGEN 18 MG/DL (7-18); CALCIUM LEVEL 8.6 MG/DL (8.8-10.2); CARBON DIOXIDE LEVEL 28 MEQ/L (21-32); CHLORIDE LEVEL 107 MEQ/L (98-107); CREATININE FOR GFR 0.75 MG/DL (0.55-1.30); GLOMERULAR FILTRATION RATE > 60.0 (>32); GLUCOSE, FASTING 92 MG/DL (70-100); POTASSIUM SERUM 3.8 MEQ/L (3.5-5.1); SODIUM LEVEL 141 MEQ/L (136-145)
[2018-06-04 15:22] LABS: TOTAL 25(OH) VITAMIN D 95.5 NG/ML (30.0-100.0)
== END ==
LOC: M LABDRAW1 13:57
PROVIDERS: ATTEND Nurse Practitioner Family
DX: M85.9 Disorder of bone density and structure, unspecified (principal)

== ENCOUNTER → 2018-07-20 | Outpatient (CLI) | payer MEDICARE, OTHER ==
[2018-07-20 12:48] LABS: BASO # 0.1 10^3/uL (0.0-0.2); BASO % 0.9 % (0.0-1.0); EOS # 0.2 10^3/uL (0.0-0.50); EOS % 3.7 % (0.0-3.0); HEMATOCRIT 46.4 % (36.0-47.0); HEMOGLOBIN 14.8 g/dl (12.0-15.5); LYMPH # 1.9 10^3/uL (1.5-4.5); LYMPH % 29.4 % (24.0-44.0); MEAN CORPUSCULAR HEMOGLOBIN 28.6 pg (27.0-33.0); MEAN CORPUSCULAR HGB CONC 31.9 g/dl (32.0-36.5); MEAN CORPUSCULAR VOLUME 89.7 fl (80.0-96.0); MONO # 0.6 10^3/uL (0.0-0.8); MONO % 9.4 % (0.0-5.0); NEUTROPHILS # 3.7 10^3/uL (1.8-7.7); NEUTROPHILS % 56.4 % (36.0-66.0); PLATELET COUNT, AUTOMATED 206 10^3/uL (150-450); RED BLOOD COUNT 5.17 10^6/uL (4.00-5.40); WHITE BLOOD COUNT 6.6 10^3/uL (4.0-10.0)
[2018-07-20 13:15] LABS: ALBUMIN 4.1 GM/DL (3.2-5.2); ALT/SGPT 26 U/L (12-78); BILIRUBIN,TOTAL 0.5 MG/DL (0.2-1.0); BLOOD UREA NITROGEN 19 MG/DL (7-18); CALCIUM LEVEL 9.2 MG/DL (8.8-10.2); CARBON DIOXIDE LEVEL 30 MEQ/L (21-32); CHLORIDE LEVEL 107 MEQ/L (98-107); CHOLESTEROL LEVEL 170 MG/DL (<200); CHOLESTEROL RISK RATIO 2.537 (<5); CREATININE FOR GFR 0.84 MG/DL (0.55-1.30); FERRITIN 34 NG/ML (8-252); FREE T4 1.03 NG/DL (0.76-1.46); GLOMERULAR FILTRATION RATE > 60.0 (>32); GLUCOSE, FASTING 93 MG/DL (70-100); HDL CHOLESTEROL 67 MG/DL (>40); IRON (FE) 79 UG/DL (50-170); LDL CHOLESTEROL 89 MG/DL (<100); NON-HDL-C 103 MG/DL; PERCENT SATURATION 18.5 % (13.2-45.0); SODIUM LEVEL 142 MEQ/L (136-145); TOTAL 25(OH) VITAMIN D 126.3 NG/ML (30.0-100.0); TOTAL IRON BINDING CAPACITY 428 UG/DL (250-450); TOTAL PROTEIN 7.2 GM/DL (6.4-8.2); TRIGLYCERIDES LEVEL 71 MG/DL (<150)
[2018-07-20 14:47] LABS: HEMOGLOBIN A1c 5.6 %
== END ==
LOC: M WUC 08:36
PROVIDERS: ATTEND Physician Assistant
DX: D64.9 Anemia, unspecified (principal); E78.2 Mixed hyperlipidemia; E03.9 Hypothyroidism, unspecified; R73.09 Other abnormal glucose; E55.9 Vitamin D deficiency, unspecified

== ENCOUNTER → 2018-07-26 | Outpatient (CLI) | payer MEDICARE, OTHER ==
--- NOTE | 2018-07-26 15:03 | REP ---
Clinical: Pain with recent trauma. Technique: Internal rotation, external rotation, and Y view of the right shoulder. Mild osteopenia and mild degenerative changes include very subtle cortical irregularity at the acromioclavicular joint and blunting to the ossified glenoid rim. No significant periarticular calcifications are identified. Subacromial space measures approximately 6.5 mm on external rotation. No acute fracture dislocation. Impression: Essentially age-related osteopenia and mild degenerative change. Electronically Signed by Anson Manning MD 07/26/2018 02:54 P
== END ==
LOC: M WUC 14:35
PROVIDERS: ATTEND Physician Assistant
DX: S49.91XA Unspecified injury of right shoulder and upper arm, initial encounter (principal); M19.011 Primary osteoarthritis, right shoulder; M85.811 Other specified disorders of bone density and structure, right shoulder; W00.0XXA Fall on same level due to ice and snow, initial encounter; Y92.89 Other specified places as the place of occurrence of the external cause

== ENCOUNTER → 2018-10-26 | Outpatient (CLI) | payer MEDICARE, OTHER ==
--- NOTE | 2018-10-27 07:27 | REP ---
RIGHT SHOULDER, THREE VIEWS: Three views right shoulder performed. There is no acute fracture or dislocation. There is mild narrowing of the acromioclavicular joint. IMPRESSION: Mild degenerative changes acromioclavicular joint. Electronically Signed by Rigo To MD 10/28/2018 09:45 A
== END ==
LOC: M WUC 19:05
PROVIDERS: ATTEND Physician Assistant
DX: M19.011 Primary osteoarthritis, right shoulder (principal); M25.511 Pain in right shoulder
CPT/HCPCS: 73030; G0463

== ENCOUNTER → 2019-02-05 | Outpatient (REF) | payer MEDICARE, OTHER ==
[2019-02-05 18:56] LABS: BASO # 0.1 10^3/uL (0.0-0.2); BASO % 0.7 % (0.0-1.0); EOS # 0.2 10^3/uL (0.0-0.5); EOS % 2.2 % (0.0-3.0); HEMATOCRIT 43.6 % (36.0-47.0); HEMOGLOBIN 14.1 g/dl (12.0-15.5); LYMPH # 2.2 10^3/uL (1.5-5.0); LYMPH % 29.6 % (24.0-44.0); MEAN CORPUSCULAR HEMOGLOBIN 29.7 pg (27.0-33.0); MEAN CORPUSCULAR HGB CONC 32.3 g/dl (32.0-36.5); MONO # 0.6 10^3/uL (0.0-0.8); NEUTROPHILS # 4.3 10^3/uL (1.5-8.5); NEUTROPHILS % 59.2 % (36.0-66.0); PLATELET COUNT, AUTOMATED 151 10^3/uL (150-450); RED BLOOD COUNT 4.74 10^6/uL (4.00-5.40); WHITE BLOOD COUNT 7.3 10^3/uL (4.0-10.0)
[2019-02-05 19:17] LABS: ALBUMIN 3.8 GM/DL (3.2-5.2); ALT/SGPT 30 U/L (12-78); BILIRUBIN,TOTAL 0.6 MG/DL (0.2-1.0); BLOOD UREA NITROGEN 19 MG/DL (7-18); CALCIUM LEVEL 9.3 MG/DL (8.8-10.2); CARBON DIOXIDE LEVEL 34 MEQ/L (21-32); CHLORIDE LEVEL 105 MEQ/L (98-107); CHOLESTEROL LEVEL 205 MG/DL (<200); CREATININE FOR GFR 0.87 MG/DL (0.55-1.30); FERRITIN 20 NG/ML (8-252); GLOMERULAR FILTRATION RATE > 60.0 (>32); GLUCOSE, FASTING 79 MG/DL (70-100); HDL CHOLESTEROL 100 MG/DL (>40); IRON (FE) 119 UG/DL (50-170); LDL CHOLESTEROL 93 MG/DL (<100); NON-HDL-C 105 MG/DL; PERCENT SATURATION 26.6 % (13.2-45.0); POTASSIUM SERUM 4.9 MEQ/L (3.5-5.1); SODIUM LEVEL 141 MEQ/L (136-145); TOTAL 25(OH) VITAMIN D 39.6 NG/ML (30.0-100.0); TOTAL IRON BINDING CAPACITY 448 UG/DL (250-450); TOTAL PROTEIN 6.9 GM/DL (6.4-8.2); TRIGLYCERIDES LEVEL 60 MG/DL (<150)
== END ==
LOC: M SFHCSACK 08:28
PROVIDERS: ATTEND Physician Assistant
DX: E78.2 Mixed hyperlipidemia (principal); E55.9 Vitamin D deficiency, unspecified; D64.9 Anemia, unspecified; E03.9 Hypothyroidism, unspecified

== ENCOUNTER → 2019-07-07 | Outpatient (REF) | payer MEDICARE, OTHER ==
[2019-07-07 19:06] LABS: ALBUMIN 4.2 GM/DL (3.2-5.2); ALT/SGPT 25 U/L (12-78); AMYLASE 58 U/L (25-115); BILIRUBIN,TOTAL 0.5 MG/DL (0.2-1.0); BLOOD UREA NITROGEN 14 MG/DL (7-18); CALCIUM LEVEL 10.2 MG/DL (8.8-10.2); CARBON DIOXIDE LEVEL 32 MEQ/L (21-32); CHLORIDE LEVEL 106 MEQ/L (98-107); CREATININE FOR GFR 0.79 MG/DL (0.55-1.30); GLOMERULAR FILTRATION RATE > 60.0 (>32); GLUCOSE, FASTING 75 MG/DL (70-100); LIPASE 132 U/L (73-393); POTASSIUM SERUM 4.5 MEQ/L (3.5-5.1); SODIUM LEVEL 142 MEQ/L (136-145); TOTAL PROTEIN 7.7 GM/DL (6.4-8.2)
[2019-07-07 19:07] LABS: BASO # 0.1 10^3/uL (0.0-0.2); BASO % 0.8 % (0.0-1.0); EOS # 0.5 10^3/uL (0.0-0.5); EOS % 6.3 % (0.0-3.0); HEMATOCRIT 45.1 % (36.0-47.0); HEMOGLOBIN 14.2 g/dl (12.0-15.5); LYMPH # 1.8 10^3/uL (1.5-5.0); LYMPH % 23.2 % (24.0-44.0); MEAN CORPUSCULAR HEMOGLOBIN 29.3 pg (27.0-33.0); MEAN CORPUSCULAR HGB CONC 31.5 g/dl (32.0-36.5); MEAN CORPUSCULAR VOLUME 93.2 fl (80.0-96.0); MONO # 0.7 10^3/uL (0.0-0.8); MONO % 9.8 % (0.0-5.0); NEUTROPHILS # 4.5 10^3/uL (1.5-8.5); NEUTROPHILS % 59.8 % (36.0-66.0); PLATELET COUNT, AUTOMATED 201 10^3/uL (150-450); RED BLOOD COUNT 4.84 10^6/uL (4.00-5.40); WHITE BLOOD COUNT 7.6 10^3/uL (4.0-10.0)
== END ==
LOC: M SFHCADAM 16:20
PROVIDERS: ATTEND Physician Assistant
DX: R10.13 Epigastric pain (principal); R60.0 Localized edema; R17 Unspecified jaundice

== ENCOUNTER → 2019-07-15 | Outpatient (CLI) | payer MEDICARE, OTHER ==
[~2019-07-15] MED LIST: GASTROGRAFIN SOLUTION 30ML (Q9963) As Ordered ONE; ISOVUE-370 76% 100ML VIAL (Q9967) As Ordered ONE
--- NOTE | 2019-07-15 16:03 | REP ---
CT ABDOMEN AND PELVIS WITH ORAL AND IV CONTRAST: TECHNIQUE: Axial contrast enhanced images from the lung bases to the pubic symphysis using 100 mL Isovue 370 intravenous contrast material with multiplanar reformations. Visualized lung bases demonstrate no infiltrate. There is a large hiatal hernia. Liver demonstrates a elongated appearance with the right lobe extending into the upper pelvis, with a length of approximately 20.6 cm. This may represent a normal variant, a Lakisha's lobe. No liver mass is seen. The patient has had a prior cholecystectomy. There is expected prominence of the common bile duct. Spleen is normal in size. No intrinsic abnormality is seen. No adrenal mass is seen. No pancreatic mass is seen. The kidneys appear unremarkable. There is atherosclerotic calcification of the abdominal aorta without aneurysm. There is no adenopathy. There is no free air or free fluid. There is no bowel wall thickening. There is sigmoid diverticulosis without evidence of acute diverticulitis. There is no pelvic mass. Urinary bladder appears grossly unremarkable. There are degenerative changes of the spine. IMPRESSION: Large hiatal hernia. Elongated appearance of the liver may represent mild hepatomegaly versus a Lakisha's lobe. Status post cholecystectomy. Sigmoid diverticulosis without acute diverticulitis. No adenopathy, mass, or free fluid. Electronically Signed by Rigo To MD 07/15/2019 05:01 P
== END ==
LOC: M RAD 12:46
PROVIDERS: ATTEND Physician Assistant
DX: K44.9 Diaphragmatic hernia without obstruction or gangrene (principal); K57.30 Diverticulosis of large intestine without perforation or abscess without bleeding; R60.0 Localized edema; R17 Unspecified jaundice
CPT/HCPCS: 74177; Q9963; Q9967

== ENCOUNTER → 2019-10-07 | Outpatient (CLI) | payer MEDICARE, OTHER ==
[~2019-10-07] MED LIST changes: +ATOR1TAB19 PO; +CELE40TA PO; +D 1010004 PO; +DOXE10CO2 PO; -GASTROGRAFIN SOLUTION 30ML (Q9963) As Ordered ONE; -ISOVUE-370 76% 100ML VIAL (Q9967) As Ordered ONE; +LEVO50TA5 PO; +NAPR250T4 PO; +OMEP-218 PO
[2019-10-07 12:50] LABS: BLOOD UREA NITROGEN 16 MG/DL (7-18); CALCIUM LEVEL 9.5 MG/DL (8.8-10.2); CARBON DIOXIDE LEVEL 25 MEQ/L (21-32); CHLORIDE LEVEL 106 MEQ/L (98-107); CREATININE FOR GFR 0.63 MG/DL (0.55-1.30); GLOMERULAR FILTRATION RATE > 60.0 (>32); GLUCOSE, FASTING 86 MG/DL (70-100); POTASSIUM SERUM 4.1 MEQ/L (3.5-5.1); SODIUM LEVEL 139 MEQ/L (136-145)
== END ==
LOC: M WUC 10:20
PROVIDERS: ATTEND Internal Medicine Endocrinology, Diabetes & Metabolism
DX: M85.9 Disorder of bone density and structure, unspecified (principal)

== ENCOUNTER → 2019-10-22 | Outpatient (REF) | payer MEDICARE, OTHER | LOC: M LAB REF 12:06 | PROVIDERS: ATTEND Physician Assistant | DX: Z03.818 Encounter for observation for suspected exposure to other biological agents ruled out (principal); Z11.59 Encounter for screening for other viral diseases ==

== ENCOUNTER 2019-10-25 09:21 | Day surgery (SDC) | payer MEDICARE, OTHER ==
[~2019-10-25] VITALS: Ht 149.9 cm; Wt 80.6 kg
[~2019-10-25 09:21] MED LIST changes: +NS 1,000 ML IV ONE
[2019-10-25] MEDS ORDERED: LIDOCAINE 2% 100MG/5ML SDV (FOR ANES.) As Ordered ONE (09:33)
[2019-10-25] MEDS ORDERED: propofoL 200 MG/20 ML VIAL As Ordered ONE (09:33)
[2019-10-25] MEDS ORDERED: fentaNYL 100 MCG/2 ML INJECTION (J3010) As Ordered ONE (10:27)
--- NOTE | 2019-10-25 11:06 | ROOR ---
Patient Name: Dariana Ribera Procedure Date: 10/25/2019 10:44 AM Date of : 1935 Age: 84 Room: [facility] Gender: Female Note Status: Finalized Procedure: Upper GI endoscopy + Balloon Dilatation Indications: Dysphagia, Heartburn Providers: Nilo Cortes MD Referring MD: FAUSTO Nava Requesting Provider: Medicines: Monitored Anesthesia Care Complications: No immediate complications. Procedure: Pre-Anesthesia Assessment: - The heart rate, respiratory rate, oxygen saturations, blood pressure, adequacy of pulmonary ventilation, and response to care were monitored throughout the procedure. The Endoscope was introduced through the mouth, and advanced to the second part of duodenum. The upper GI endoscopy was accomplished without difficulty. The patient tolerated the procedure well. Findings: The Z-line was regular and was found 35 cm from the incisors. A non-obstructing Schatzki ring was found at the gastroesophageal junction. A TTS dilator was passed through the scope. Dilation with an 18-19-20 mm balloon dilator was performed to 20 mm. The dilation site was examined and showed mild mucosal disruption. A large hiatal hernia was present. No other significant abnormalities were identified in a careful examination of the stomach. The exam of the duodenum was otherwise normal. Impression: - Z-line regular, 35 cm from the incisors. - Non-obstructing Schatzki ring. Dilated. - Large hiatal hernia. - No specimens collected. - The examination was otherwise normal. Recommendation: - Patient has a contact number available for emergencies. The signs and symptoms of potential delayed complications were discussed with the patient. Return to normal activities tomorrow. Written discharge instructions were provided to the patient. - High fiber diet. - Discharge patient to home. - Follow an antireflux regimen. - Continue present medications. - Return to referring physician. - The findings and recommendations were discussed with the patient's family. Nilo Cortes MD Nilo Cortes MD 10/25/2019 11:06:29 AM Electronically signed by Nilo Cortes MD Number of Addenda: 0 Note Initiated On: 10/25/2019 10:44 AM Estimated Blood Loss: Estimated blood loss: none.
--- NOTE | 2019-10-25 11:23 | ROOR ---
Patient Name: Dariana Ribera Procedure Date: 10/25/2019 10:45 AM Date of : 1935 Age: 84 Room: [facility] Gender: Female Note Status: Finalized Procedure: Total Colonoscopy to Cecum Indications: High risk colon cancer surveillance: Personal history of colonic polyps, Last colonoscopy: 2015 Providers: Nilo Cortes MD Referring MD: FAUSTO Nava Requesting Provider: Medicines: Monitored Anesthesia Care Complications: No immediate complications. Procedure: Pre-Anesthesia Assessment: - The heart rate, respiratory rate, oxygen saturations, blood pressure, adequacy of pulmonary ventilation, and response to care were monitored throughout the procedure. The Colonoscope was introduced through the anus and advanced to the cecum, identified by appendiceal orifice and ileocecal valve. The colonoscopy was performed without difficulty. The patient tolerated the procedure well. The quality of the bowel preparation was excellent. Findings: The perianal and digital rectal examinations were normal. Non-bleeding internal hemorrhoids were found during retroflexion. The hemorrhoids were small and Grade I (internal hemorrhoids that do not prolapse). Multiple small and large-mouthed diverticula were found in the recto-sigmoid colon, sigmoid colon and descending colon. The exam was otherwise without abnormality on direct and retroflexion views. Impression: - Non-bleeding internal hemorrhoids. - Diverticulosis in the recto-sigmoid colon, in the sigmoid colon and in the descending colon. - The examination was otherwise normal on direct and retroflexion views. - No specimens collected. - The exam was otherwise normal to the cecum. Recommendation: - Patient has a contact number available for emergencies. The signs and symptoms of potential delayed complications were discussed with the patient. Return to normal activities tomorrow. Written discharge instructions were provided to the patient. - High fiber diet. - Discharge patient to home. - Continue present medications. - Repeat colonoscopy for symptoms only. - Return to referring physician. - The findings and recommendations were discussed with the patient. Nilo Cortes MD Nilo Cortes MD 10/25/2019 11:23:43 AM Electronically signed by Nilo Cortes MD Number of Addenda: 0 Note Initiated On: 10/25/2019 10:45 AM Estimated Blood Loss: Estimated blood loss: none.
[2019-10-25 11:50] VITALS: BP 128/61
== END 2019-10-25 12:25 | disposition home or self-care (01) ==
LOC: M OPP 09:21
PROVIDERS: ATTEND Internal Medicine Gastroenterology
DX: Z12.11 Encounter for screening for malignant neoplasm of colon (principal); Z86.010 Personal history of colon polyps; K57.30 Diverticulosis of large intestine without perforation or abscess without bleeding; K64.0 First degree hemorrhoids; K21.9 Gastro-esophageal reflux disease without esophagitis; E03.9 Hypothyroidism, unspecified; R13.10 Dysphagia, unspecified; K22.2 Esophageal obstruction; K44.9 Diaphragmatic hernia without obstruction or gangrene; Z79.899 Other long term (current) drug therapy; Z87.891 Personal history of nicotine dependence
CPT/HCPCS: 43220; G0105; J3010

== ENCOUNTER → 2019-12-21 | Outpatient (CLI) | payer MEDICARE, OTHER ==
[~2019-12-21] MED LIST changes: -NS 1,000 ML IV ONE
--- NOTE | 2020-01-17 08:22 | REP ---
LEFT SHOULDER SERIES: CLINICAL: Pain with recent trauma. TECHNIQUE: Internal rotation, external rotation and Y-view of the left shoulder. FINDINGS: Age related degenerative changes are noted. No acute fracture or dislocation. No periarticular calcifications or loose bodies. Surrounding soft tissues are unremarkable. IMPRESSION: Age related changes. No acute fracture or dislocation. MTDD
--- NOTE | 2020-01-17 08:23 | REP ---
CERVICAL SPINE SERIES: CLINICAL: Neck pain. TECHNIQUE: AP, lateral, flexion/extension, bilateral oblique and open mouth views. FINDINGS: Alignment and lordosis is maintained. No acute fracture/compression injury or subluxation. Osteopenia and advanced multilevel degenerative changes are noted. IMPRESSION: Osteopenia and advanced multilevel degenerative spondylosis. No acute fracture/compression injury or subluxation. MTDD
== END ==
LOC: M WUC 12:57
PROVIDERS: ATTEND Nurse Practitioner Family
DX: M54.2 Cervicalgia (principal); M25.512 Pain in left shoulder; Z79.899 Other long term (current) drug therapy

== ENCOUNTER → 2019-12-21 | Outpatient (CLI) | payer MEDICARE, OTHER ==
[2019-12-21 18:02] LABS: CALCIUM LEVEL 9.4 MG/DL (8.8-10.2); TOTAL 25(OH) VITAMIN D 27.5 NG/ML (30.0-100.0)
== END ==
LOC: M WUC 13:08
PROVIDERS: ATTEND Nurse Practitioner Family
DX: E55.9 Vitamin D deficiency, unspecified (principal); M85.9 Disorder of bone density and structure, unspecified

== ENCOUNTER → 2020-03-08 | Outpatient (REF) | payer MEDICARE, OTHER ==
[2020-03-08 17:14] LABS: HEMATOCRIT 41.6 % (36.0-47.0); HEMOGLOBIN 12.8 g/dl (12.0-15.5); MEAN CORPUSCULAR HEMOGLOBIN 27.5 pg (27.0-33.0); MEAN CORPUSCULAR HGB CONC 30.8 g/dl (32.0-36.5); MEAN CORPUSCULAR VOLUME 89.3 fl (80.0-96.0); PLATELET COUNT, AUTOMATED 158 10^3/uL (150-450); RED BLOOD COUNT 4.66 10^6/uL (4.00-5.40); WHITE BLOOD COUNT 6.5 10^3/uL (4.0-10.0)
[2020-03-08 17:19] LABS: ALBUMIN 3.6 GM/DL (3.2-5.2); ALT/SGPT 26 U/L (12-78); BILIRUBIN,TOTAL 0.4 MG/DL (0.2-1.0); BLOOD UREA NITROGEN 16 MG/DL (7-18); CALCIUM LEVEL 9.3 MG/DL (8.8-10.2); CARBON DIOXIDE LEVEL 29 MEQ/L (21-32); CHLORIDE LEVEL 109 MEQ/L (98-107); FREE T4 0.99 NG/DL (0.76-1.46); GLOMERULAR FILTRATION RATE > 60.0 (>32); GLUCOSE, FASTING 94 MG/DL (70-100); NT-PRO BNP 76 PG/ML (<450); POTASSIUM SERUM 4.5 MEQ/L (3.5-5.1); SODIUM LEVEL 143 MEQ/L (136-145); TOTAL PROTEIN 6.9 GM/DL (6.4-8.2)
== END ==
LOC: M SFHCADAM 11:12
PROVIDERS: ATTEND Physician Assistant
DX: F34.1 Dysthymic disorder (principal); R06.00 Dyspnea, unspecified; R93.2 Abnormal findings on diagnostic imaging of liver and biliary tract

== ENCOUNTER → 2020-03-08 | Outpatient (CLI) | payer MEDICARE, OTHER ==
--- NOTE | 2020-03-08 14:26 | REP ---
INDICATION: LING COMPARISON: 09/13/2015 TECHNIQUE: PA and lateral. FINDINGS: The mediastinum and cardiac silhouette are stable. No cardiomegaly. Large hiatal hernia noted. The lung amos are clear and without acute consolidation, effusion, or pneumothorax. The skeletal structures are intact and normal. IMPRESSION: No acute cardiopulmonary process. Stable hiatal hernia. <Electronically signed by Anson Manning > 03/08/20 [id number]
== END ==
LOC: M ADAMS 11:43
PROVIDERS: ATTEND Physician Assistant
DX: R06.00 Dyspnea, unspecified (principal); K44.9 Diaphragmatic hernia without obstruction or gangrene

== ENCOUNTER → 2020-03-14 | Outpatient (CLI) | payer MEDICARE, OTHER ==
--- NOTE | 2020-03-14 09:47 | REP ---
INDICATION: LIVER ENLARGEMENT COMPARISON: None. TECHNIQUE: Real time mendez scale ultrasound examination using curved array transducer. FINDINGS: Liver is normal in contour, size, and echogenicity without focal hepatic lesions identified and measures 13 cm in craniocaudal length . Pancreas is incompletely evaluated due to interposed bowel gas. The gallbladder has been surgically removed. No obvious biliary ductal dilatation is appreciated. Right kidney is normal in reniform shape without hydronephrosis and measures 10.0 x 3.5 x 3.8 cm. No ascites in the visualized right upper quadrant. IMPRESSION: Normal limited right upper quadrant ultrasound <Electronically signed by Anson Manning > 03/14/20 [id number]
== END ==
LOC: M RAD 07:07
PROVIDERS: ATTEND Physician Assistant
DX: R16.0 Hepatomegaly, not elsewhere classified (principal)

== ENCOUNTER → 2020-04-26 | Outpatient (CLI) | payer MEDICARE, OTHER ==
[2020-04-26 16:13] LABS: HEMATOCRIT 40.9 % (36.0-47.0); HEMOGLOBIN 12.5 g/dl (12.0-15.5); MEAN CORPUSCULAR HEMOGLOBIN 26.4 pg (27.0-33.0); MEAN CORPUSCULAR HGB CONC 30.6 g/dl (32.0-36.5); MEAN CORPUSCULAR VOLUME 86.5 fl (80.0-96.0); PLATELET COUNT, AUTOMATED 202 10^3/uL (150-450); RED BLOOD COUNT 4.73 10^6/uL (4.00-5.40); WHITE BLOOD COUNT 6.7 10^3/uL (4.0-10.0)
[2020-04-26 16:25] LABS: ALBUMIN 3.7 GM/DL (3.2-5.2); ALT/SGPT 26 U/L (12-78); BILIRUBIN,TOTAL 0.5 MG/DL (0.2-1.0); BLOOD UREA NITROGEN 8 MG/DL (7-18); CALCIUM LEVEL 9.2 MG/DL (8.8-10.2); CARBON DIOXIDE LEVEL 32 MEQ/L (21-32); CHLORIDE LEVEL 108 MEQ/L (98-107); CREATININE FOR GFR 0.94 MG/DL (0.55-1.30); FREE T4 0.99 NG/DL (0.76-1.46); GLOMERULAR FILTRATION RATE > 60.0 (>32); GLUCOSE, FASTING 96 MG/DL (70-100); NT-PRO BNP 84 PG/ML (<450); POTASSIUM SERUM 4.2 MEQ/L (3.5-5.1); SODIUM LEVEL 142 MEQ/L (136-145); TOTAL PROTEIN 6.7 GM/DL (6.4-8.2)
== END ==
LOC: M WUC 13:51
PROVIDERS: ATTEND Physician Assistant
DX: R06.00 Dyspnea, unspecified (principal); F34.1 Dysthymic disorder; R93.2 Abnormal findings on diagnostic imaging of liver and biliary tract

== ENCOUNTER → 2020-05-09 | Outpatient (CLI) | payer MEDICARE, OTHER ==
--- NOTE | 2020-05-10 08:37 | ECHO ---
DATE OF PROCEDURE: 05/09/2020 Age: 84 Gender: Female Height: 152 cm Weight: 83 kg REFERRING PHYSICIAN: FAUSTO Nava INDICATION: Dyspnea. MEASUREMENTS: IVS 1.4 cm LV 3.7 cm LVPW 1.2 cm LA 2.8 cm Aorta 3.1 cm IVC 1.9 cm Mitral E wave velocity 84 Mitral A wave 101 E prime septal 6.2 E prime lateral 7.2 FINDINGS: This study is of acceptable technical quality. Underlying sinus rhythm. Normal LV size with mild LVH and overall preserved LV systolic function, estimated LVEF approximately 60%. I do not appreciate any segmental wall motion abnormalities. The right ventricle appears mildly dilated, but normally contractile. Both atria are at least mildly enlarged. Aortic valve has three cusps. It is mildly sclerotic, but mobility is preserved. There are also degenerative abnormalities of the mitral valve with mitral annular calcifications and mild thickening of mitral leaflets, but mobility of leaflets is preserved. Tricuspid and pulmonic valves appear normal. No pericardial effusion is noted. Inferior vena cava is in upper limits of normal size and does collapse with inspiration indicative of likely normal or near normal central venous pressure. The aortic root is normal. The aortic arch and abdominal aorta were not well visualized. Doppler interrogation reveals no aortic stenosis or insufficiency. There is mild mitral and mild tricuspid insufficiency. Calculated pulmonary artery pressure is within normal limits, but quality of TR jet was less than perfect, so this should not be considered completely reliable. Pulmonic valve is functionally competent. Mitral inflow pattern and tissue Doppler imaging of the mitral annulus revealed grade 1 diastolic dysfunction. CONCLUSIONS: 1. Study is of acceptable technical quality, underlying sinus rhythm. 2. Normal LV size with mild LVH, preserved LV systolic function, and grade 1 diastolic dysfunction. 3. Aortic sclerosis, but no stenosis or insufficiency. 4. Mild mitral and mild tricuspid insufficiency. 5. Likely normal central venous pressure and pulmonary artery pressure. COMMENTS: Study does not provide obvious explanation for dyspnea. MTDD
== END ==
LOC: M CARPUL 10:37
PROVIDERS: ATTEND Physician Assistant
DX: R06.00 Dyspnea, unspecified (principal); R60.0 Localized edema

== ENCOUNTER → 2020-09-11 | Outpatient (CLI) | payer MEDICARE, OTHER ==
[~2020-09-11] MED LIST changes: +NAPR-849 PO; -NAPR250T4 PO
== END ==
LOC: M WUC 15:54
PROVIDERS: ATTEND Physician Assistant
DX: E55.9 Vitamin D deficiency, unspecified (principal)

== ENCOUNTER → 2020-10-31 | Outpatient (CLI) | payer MEDICARE, OTHER ==
[~2020-10-31] MED LIST changes: +CARA1TAB6 PO; +CELE1CAP9 PO; +HYDR12.55 PO; +OMEP-173 PO; -OMEP-218 PO; +PREG25CA2 PO
== END ==
LOC: M WUC 15:03
PROVIDERS: ATTEND Physician Assistant
DX: E55.9 Vitamin D deficiency, unspecified (principal); Z79.899 Other long term (current) drug therapy

== ENCOUNTER 2020-11-14 18:27 | Emergency (ER) | payer MEDICARE, OTHER ==
[~2020-11-14] VITALS: Ht 149.9 cm; Wt 81.9 kg
[~2020-11-14 18:27] MED LIST changes: -CARA1TAB6 PO; -CELE1CAP9 PO; -HYDR12.55 PO; -PREG25CA2 PO
[2020-11-14] MEDS ORDERED: CELE1CAP9 PO (18:48)
[2020-11-14] MEDS ORDERED: PREG25CA2 PO (18:48)
[2020-11-14] MEDS ORDERED: HYDR12.55 PO (18:48)
[2020-11-14 20:32] LABS: BASO # 0.1 10^3/uL (0.0-0.2); BASO % 0.6 % (0.0-1.0); EOS # 0.3 10^3/uL (0.0-0.5); EOS % 4.3 % (0.0-3.0); HEMATOCRIT 39.6 % (36.0-47.0); HEMOGLOBIN 12.4 g/dl (12.0-15.5); LYMPH # 2.7 10^3/uL (1.5-5.0); LYMPH % 33.7 % (24.0-44.0); MEAN CORPUSCULAR HEMOGLOBIN 27.6 pg (27.0-33.0); MEAN CORPUSCULAR HGB CONC 31.3 g/dl (32.0-36.5); MEAN CORPUSCULAR VOLUME 88.2 fl (80.0-96.0); MONO # 0.7 10^3/uL (0.0-0.8); MONO % 8.5 % (2.0-8.0); NEUTROPHILS # 4.2 10^3/uL (1.5-8.5); NEUTROPHILS % 52.8 % (36.0-66.0); PLATELET COUNT, AUTOMATED 180 10^3/uL (150-450); RED BLOOD COUNT 4.49 10^6/uL (4.00-5.40)
[2020-11-14 20:44] LABS: INR 0.92; PROTHROMBIN TIME 12.5 SECONDS (12.5-14.3)
[2020-11-14] MEDS ORDERED: ONDANSETRON 4MG/2ML VIAL IV ONE (21:00)
[2020-11-14 21:08] LABS: ALT/SGPT 29 U/L (12-78); BILIRUBIN,DIRECT 0.1 MG/DL (0.0-0.2); BILIRUBIN,TOTAL 0.5 MG/DL (0.2-1.0); CK-MB VALUE MASS 5.7 NG/ML (<3.6); CPK CREATINE PHOSPHOKINASE 275 U/L (26-192); LIPASE 116 U/L (73-393); MB/CK RELATIVE INDEX 2.07 (< OR =4); TOTAL PROTEIN 7.1 GM/DL (6.4-8.2); TROPONIN I < 0.02 NG/ML (< 0.10)
[2020-11-14] MEDS: GASTROGRAFIN SOLUTION 30ML PO SCH ×2 (21:09→21:57)
[2020-11-14] MEDS ORDERED: MAALOX 30 ML SUSP *UDC PO ONE (23:05)
[2020-11-14] MEDS ORDERED: ISOVUE-370 76% 100ML VIAL As Ordered ONE (23:10)
[2020-11-14 23:45] VITALS: BP 155/72
[2020-11-15] MEDS ORDERED: SUCRALFATE 1 GM TAB PO ONE (00:15)
[2020-11-15] MEDS ORDERED: CARA1TAB6 PO (00:16)
== END 2020-11-15 00:30 | disposition home or self-care (01) ==
LOC: M ED 18:27
DX: K92.1 Melena (principal); D50.9 Iron deficiency anemia, unspecified; K21.9 Gastro-esophageal reflux disease without esophagitis; K44.9 Diaphragmatic hernia without obstruction or gangrene; Z79.899 Other long term (current) drug therapy
CPT/HCPCS: 74177; 80047; 80076; 82550; 82553; 83605; 83690; 84484; 85025; 85610; 85730; 86850; 86900; 86901; 93041; 96374; 99285; J2405; Q9963; Q9967

== ENCOUNTER → 2021-01-12 | Outpatient (CLI) | payer MEDICARE, OTHER ==
[~2021-01-12] MED LIST changes: +CARA1TAB6 PO; +CELE1CAP9 PO; +HYDR12.55 PO; -OMEP-173 PO; +OMEP-218 PO; +PREG25CA2 PO
--- NOTE | 2021-01-12 14:59 | REP ---
INDICATION: LUMBAR DISC DEGENERATION, R/O STENOSIS. COMPARISON: Comparison abdomen pelvis CT images November 14, 2020. TECHNIQUE: Sagittal and axial T1 and T2-weighted scans are acquired in the usual fashion with and without fat saturation. Sequences include spin echo, turbo spin-echo, and STIR imaging sequences. FINDINGS: There is a [id number] dextroconvex lumbar scoliotic curve. There is straightening of the normal lumbar lordosis. There is diffuse degenerative spondylosis with multilevel degenerative disc disease and facet osteoarthropathy. The tip of the conus medullaris is normal in position and appearance at L1-2. No extra vertebral abnormality is appreciated. Axial and sagittal images taken at the L1-2 disc level demonstrate posterior osteophytic ridging associated with diffuse disc bulging. This indents the ventral margin of the thecal sac. No chapis central canal stenosis is seen. No cauda equina compression is seen. No neural foraminal narrowing is seen. At L 2 3, there is a degenerative retrolisthesis measuring 3 mm. There is posterior osteophytic ridging associated with diffuse disc bulging at the L2-3 level. This effaces the ventral subarachnoid space. Borderline canal size. There is mild bilateral neural foraminal narrowing due to facet hypertrophy. The midline AP dimension of the thecal sac at L2-3 is 9.4 mm. At L3-4, there is degenerative narrowing of the disc, reactive endplate changes, diffuse disc bulging and posterior osteophytic ridging. There is moderate central canal stenosis due to these factors in combination with developmentally short pedicles and left greater than right ligamentum flavum hypertrophy. There is mild bilateral facet hypertrophy. The midline AP dimension of the thecal sac at the L3-4 level is 5.1 mm. There is bilateral neural foraminal narrowing due to facet and disc spurring. At L4-5, there is degenerative disc narrowing. Diffuse disc bulging is present. Canal size is borderline. Facet hypertrophy is present along with mild ligamentum flavum hypertrophy. The facet hypertrophy is more prominent on the right than the left. There is right-sided neural foraminal narrowing at L4-5 due to facet hypertrophy. There is a minimal 2 mm retrolisthesis at L4-5. At L5-S1, there is a 3 mm degenerative spondylolisthesis. This is associated with mild left and moderate to marked right-sided neural foraminal narrowing. There is mild diffuse disc bulging. There is advanced hypertrophic facet arthropathy at L5-S1 bilaterally. IMPRESSION: Scoliosis and advanced degenerative spondylosis changes as above. Multilevel central canal stenosis. This is most pronounced at L3-4. <Electronically signed by Ky Villarreal > 01/12/21 [id number]
== END ==
LOC: M PLAIMG 13:26
PROVIDERS: ATTEND Physician Assistant
DX: M51.36 Other intervertebral disc degeneration, lumbar region (principal)

== ENCOUNTER → 2021-08-17 | Outpatient (CLI) | payer MEDICARE, OTHER ==
[~2021-08-17] MED LIST changes: +OMEP-173 PO; -OMEP-218 PO
[2021-08-17 16:03] LABS: HEMATOCRIT 38.1 % (36.0-47.0); HEMOGLOBIN 11.8 g/dl (12.0-15.5); MEAN CORPUSCULAR HEMOGLOBIN 26.3 pg (27.0-33.0); PLATELET COUNT, AUTOMATED 210 10^3/uL (150-450); RED BLOOD COUNT 4.48 10^6/uL (4.00-5.40); WHITE BLOOD COUNT 7.4 10^3/uL (4.0-10.0)
[2021-08-17 16:41] LABS: ALBUMIN 3.7 GM/DL (3.2-5.2); ALT/SGPT 32 U/L (12-78); BILIRUBIN,TOTAL 0.3 MG/DL (0.2-1.0); BLOOD UREA NITROGEN 14 MG/DL (7-18); CALCIUM LEVEL 9.7 MG/DL (8.8-10.2); CARBON DIOXIDE LEVEL 30 MEQ/L (21-32); CHLORIDE LEVEL 108 MEQ/L (98-107); CREATININE FOR GFR 0.82 MG/DL (0.55-1.30); FREE T4 0.88 NG/DL (0.76-1.46); GLOMERULAR FILTRATION RATE > 60.0 (>32); GLUCOSE, FASTING 80 MG/DL (70-100); POTASSIUM SERUM 4.4 MEQ/L (3.5-5.1); SODIUM LEVEL 142 MEQ/L (136-145); TOTAL 25(OH) VITAMIN D 43.3 NG/ML (30.0-100.0); TOTAL PROTEIN 7.1 GM/DL (6.4-8.2)
== END ==
LOC: M WUC 14:43
PROVIDERS: ATTEND Physician Assistant
DX: Z00.00 Encounter for general adult medical examination without abnormal findings (principal); E03.9 Hypothyroidism, unspecified; M81.0 Age-related osteoporosis without current pathological fracture

== ENCOUNTER → 2021-08-24 | Outpatient (REF) | payer MEDICARE, OTHER ==
[2021-08-24 17:01] LABS: HEMATOCRIT 38.6 % (36.0-47.0); HEMOGLOBIN 12.1 g/dl (12.0-15.5); MEAN CORPUSCULAR HEMOGLOBIN 26.1 pg (27.0-33.0); MEAN CORPUSCULAR HGB CONC 31.3 g/dl (32.0-36.5); MEAN CORPUSCULAR VOLUME 83.2 fl (80.0-96.0); PLATELET COUNT, AUTOMATED 208 10^3/uL (150-450); RED BLOOD COUNT 4.64 10^6/uL (4.00-5.40); WHITE BLOOD COUNT 5.8 10^3/uL (4.0-10.0)
[2021-08-24 17:32] LABS: BLOOD UREA NITROGEN 16 MG/DL (7-18); CALCIUM LEVEL 9.2 MG/DL (8.8-10.2); CARBON DIOXIDE LEVEL 32 MEQ/L (21-32); CHLORIDE LEVEL 105 MEQ/L (98-107); CREATININE FOR GFR 0.93 MG/DL (0.55-1.30); GLOMERULAR FILTRATION RATE > 60.0 (>32); GLUCOSE, FASTING 99 MG/DL (70-100); NT-PRO BNP 34 PG/ML (<450); POTASSIUM SERUM 4.1 MEQ/L (3.5-5.1); SODIUM LEVEL 140 MEQ/L (136-145)
== END ==
LOC: M SFHCADAM 13:59
PROVIDERS: ATTEND Physician Assistant
DX: R60.0 Localized edema (principal); R06.00 Dyspnea, unspecified

== ENCOUNTER → 2021-12-20 | Outpatient (REF) | payer MEDICARE, OTHER | LOC: M SFHCDERM 14:43 | PROVIDERS: ATTEND Nurse Practitioner Family | DX: L82.0 Inflamed seborrheic keratosis (principal) ==

== ENCOUNTER → 2022-02-25 | Outpatient (CLI) | payer MEDICARE, OTHER ==
[2022-02-25 19:01] LABS: BLOOD UREA NITROGEN 18 MG/DL (7-18); GLOMERULAR FILTRATION RATE > 60.0 (>32)
== END ==
LOC: M WUC 15:06
DX: D32.9 Benign neoplasm of meninges, unspecified (principal)

== ENCOUNTER → 2022-02-28 | Outpatient (CLI) | payer MEDICARE, OTHER | LOC: M PLARAD 08:34 | PROVIDERS: ATTEND Radiology Radiation Oncology | DX: D32.9 Benign neoplasm of meninges, unspecified (principal) ==

== ENCOUNTER → 2022-07-17 | Outpatient (REF) | payer MEDICARE, OTHER ==
[2022-07-17 16:30] LABS: BASO # 0.1 10^3/uL (0.0-0.2); BASO % 0.8 % (0.0-1.0); EOS # 0.2 10^3/uL (0.0-0.5); EOS % 2.7 % (0.0-3.0); HEMATOCRIT 41.1 % (36.0-47.0); LYMPH # 2.4 10^3/uL (1.5-5.0); LYMPH % 30.8 % (24.0-44.0); MEAN CORPUSCULAR HEMOGLOBIN 27.4 pg (27.0-33.0); MEAN CORPUSCULAR HGB CONC 31.6 g/dl (32.0-36.5); MEAN CORPUSCULAR VOLUME 86.7 fl (80.0-96.0); MONO # 0.7 10^3/uL (0.0-0.8); NEUTROPHILS # 4.4 10^3/uL (1.5-8.5); NEUTROPHILS % 56.3 % (36.0-66.0); PLATELET COUNT, AUTOMATED 206 10^3/uL (150-450); RED BLOOD COUNT 4.74 10^6/uL (4.00-5.40); WHITE BLOOD COUNT 7.8 10^3/uL (4.0-10.0)
[2022-07-17 16:49] LABS: ALBUMIN 3.9 G/DL (3.2-5.2); ALKALINE PHOSPHATASE 62 U/L (46-116); ALT/SGPT 23 U/L (7.0-40); AST/SGOT 21 U/L (<34); BILIRUBIN,TOTAL 0.4 MG/DL (0.3-1.2); BLOOD UREA NITROGEN 17 MG/DL (9-23); CALCIUM LEVEL 9.5 MG/DL (8.3-10.6); CARBON DIOXIDE LEVEL 35 MMOL/L (20-31); CHLORIDE LEVEL 104 MMOL/L (98-107); CHOLESTEROL LEVEL 178 MG/DL (<200); CHOLESTEROL RISK RATIO 2.68 (<5); CREATININE FOR GFR 0.78 MG/DL (0.55-1.30); FREE T4 1.06 NG/DL (0.89-1.76); GLOMERULAR FILTRATION RATE > 60.0 (>32); GLUCOSE, FASTING 76 MG/DL (74-106); HDL CHOLESTEROL 66.3 MG/DL (>40); LDL CHOLESTEROL 77.3 MG/DL (<100); NON-HDL-C 111.7 MG/DL; POTASSIUM SERUM 4.6 MMOL/L (3.5-5.1); SODIUM LEVEL 140 MMOL/L (136-145); TOTAL PROTEIN 6.9 G/DL (5.7-8.2); TRIGLYCERIDES LEVEL 172 MG/DL (<150); VITAMIN B12 LEVEL 390 PG/ML (211-911)
[2022-07-17 16:50] LABS: TOTAL 25(OH) VITAMIN D 50.8 NG/ML (20.0-100.0)
[2022-07-17 16:51] LABS: THYROID STIMULATING HORMONE 2.058 uIU/ML (0.55-4.78)
[2022-07-17 16:58] LABS: FOLATE 9.8 NG/ML (>5.4)
== END ==
LOC: M SFHCADAM 14:17
PROVIDERS: ATTEND Physician Assistant
DX: M48.061 Spinal stenosis, lumbar region without neurogenic claudication (principal); M81.0 Age-related osteoporosis without current pathological fracture; E78.2 Mixed hyperlipidemia; K21.9 Gastro-esophageal reflux disease without esophagitis; F51.01 Primary insomnia; E03.9 Hypothyroidism, unspecified; E55.9 Vitamin D deficiency, unspecified; R60.0 Localized edema

== ENCOUNTER → 2023-01-16 | Outpatient (CLI) | payer MEDICARE, OTHER ==
[~2023-01-16] MED LIST changes: +CELE0.09 PO; -CELE1CAP9 PO; -PREG25CA2 PO; +PREG25CA3 PO
[2023-01-16 17:59] LABS: THYROID STIMULATING HORMONE 3.068 uIU/ML (0.55-4.78)
[2023-01-16 18:00] LABS: BASO % 0.6 % (0.0-1.0); EOS # 0.3 10^3/uL (0.0-0.5); EOS % 3.6 % (0.0-3.0); HEMOGLOBIN 12.3 g/dl (12.0-15.5); LYMPH # 1.8 10^3/uL (1.5-5.0); LYMPH % 24.9 % (24.0-44.0); MEAN CORPUSCULAR HEMOGLOBIN 26.6 pg (27.0-33.0); MEAN CORPUSCULAR HGB CONC 31.5 g/dl (32.0-36.5); MEAN CORPUSCULAR VOLUME 84.2 fl (80.0-96.0); MONO # 0.8 10^3/uL (0.0-0.8); MONO % 10.6 % (2.0-8.0); NEUTROPHILS # 4.3 10^3/uL (1.5-8.5); PLATELET COUNT, AUTOMATED 182 10^3/uL (150-450); RED BLOOD COUNT 4.63 10^6/uL (4.00-5.40); WHITE BLOOD COUNT 7.2 10^3/uL (4.0-10.0)
[2023-01-16 18:02] LABS: FREE T4 1.07 NG/DL (0.89-1.76)
[2023-01-16 18:04] LABS: BLOOD UREA NITROGEN 18 MG/DL (9-23); CALCIUM LEVEL 9.3 MG/DL (8.3-10.6); CARBON DIOXIDE LEVEL 30 MMOL/L (20-31); CHLORIDE LEVEL 107 MMOL/L (98-107); CREATININE FOR GFR 0.73 MG/DL (0.55-1.30); GLOMERULAR FILTRATION RATE > 60.0 (>32); GLUCOSE, FASTING 94 MG/DL (74-106); POTASSIUM SERUM 4.6 MMOL/L (3.5-5.1); SODIUM LEVEL 141 MMOL/L (136-145)
== END ==
LOC: M WUC 13:08
PROVIDERS: ATTEND Physician Assistant
DX: K44.9 Diaphragmatic hernia without obstruction or gangrene (principal); R53.83 Other fatigue; R06.00 Dyspnea, unspecified

== ENCOUNTER → 2023-02-26 | Outpatient (CLI) | payer MEDICARE, OTHER | LOC: M WHC 10:56 | PROVIDERS: ATTEND Physician Assistant | DX: M81.0 Age-related osteoporosis without current pathological fracture (principal) ==

== ENCOUNTER → 2023-07-29 | Outpatient (REF) | payer MEDICARE, OTHER ==
[2023-07-29 18:49] LABS: HEMATOCRIT 38.5 % (36.0-47.0); HEMOGLOBIN 12.2 g/dl (12.0-15.5); MEAN CORPUSCULAR HEMOGLOBIN 26.3 pg (27.0-33.0); MEAN CORPUSCULAR HGB CONC 31.7 g/dl (32.0-36.5); PLATELET COUNT, AUTOMATED 211 10^3/uL (150-450); RED BLOOD COUNT 4.64 10^6/uL (4.00-5.40); WHITE BLOOD COUNT 8.5 10^3/uL (4.0-10.0)
[2023-07-29 19:08] LABS: ALBUMIN 3.9 G/DL (3.2-5.2); ALKALINE PHOSPHATASE 65 U/L (46-116); ALT/SGPT 20 U/L (7.0-40); AST/SGOT 20 U/L (<34); BILIRUBIN,TOTAL 0.4 MG/DL (0.3-1.2); BLOOD UREA NITROGEN 26 MG/DL (9-23); CALCIUM LEVEL 9.6 MG/DL (8.3-10.6); CARBON DIOXIDE LEVEL 30 MMOL/L (20-31); CHLORIDE LEVEL 104 MMOL/L (98-107); CHOLESTEROL LEVEL 184 MG/DL (<200); CHOLESTEROL RISK RATIO 2.53 (<5); CREATININE FOR GFR 0.88 MG/DL (0.55-1.30); GLOMERULAR FILTRATION RATE > 60.0 (>32); GLUCOSE, FASTING 82 MG/DL (74-106); HDL CHOLESTEROL 72.7 MG/DL (>40); LDL CHOLESTEROL 55.1 MG/DL (<100); NON-HDL-C 111.3 MG/DL; POTASSIUM SERUM 4.1 MMOL/L (3.5-5.1); SODIUM LEVEL 140 MMOL/L (136-145); TOTAL PROTEIN 6.8 G/DL (5.7-8.2); TRIGLYCERIDES LEVEL 281 MG/DL (<150)
[2023-07-29 19:13] LABS: THYROID STIMULATING HORMONE 2.225 uIU/ML (0.55-4.78); TOTAL 25(OH) VITAMIN D 52.1 NG/ML (20.0-100.0)
[2023-07-29 19:15] LABS: FREE T4 1.11 NG/DL (0.89-1.76)
== END ==
LOC: M SFHCADAM 15:32
PROVIDERS: ATTEND Physician Assistant
DX: E03.9 Hypothyroidism, unspecified (principal); E78.2 Mixed hyperlipidemia; M81.0 Age-related osteoporosis without current pathological fracture; E55.9 Vitamin D deficiency, unspecified; D64.9 Anemia, unspecified

== ENCOUNTER → 2023-10-16 | Outpatient (CLI) | payer MEDICARE, OTHER | LOC: M WHC 13:59 | PROVIDERS: ATTEND Internal Medicine | DX: M81.0 Age-related osteoporosis without current pathological fracture (principal) ==

== ENCOUNTER 2024-01-19 10:41 | Inpatient (IN) | payer MEDICARE, OTHER ==
[~2024-01-19] VITALS: Ht 149.9 cm; Wt 78.1 kg
[2024-01-19] MEDS ORDERED: ISOVUE-370 76% 100ML VIAL As Ordered ONE (11:03)
[2024-01-19 11:13] LABS: BASO % 0.7 % (0.0-1.0); EOS # 0.2 10^3/uL (0.0-0.5); EOS % 3.3 % (0.0-3.0); HEMATOCRIT 37.9 % (36.0-47.0); HEMOGLOBIN 12.1 g/dl (12.0-15.5); LYMPH # 2.2 10^3/uL (1.5-5.0); MEAN CORPUSCULAR HEMOGLOBIN 26.6 pg (27.0-33.0); MEAN CORPUSCULAR HGB CONC 31.9 g/dl (32.0-36.5); MEAN CORPUSCULAR VOLUME 83.3 fl (80.0-96.0); MONO # 0.5 10^3/uL (0.0-0.8); NEUTROPHILS % 50.8 % (36.0-66.0); PLATELET COUNT, AUTOMATED 185 10^3/uL (150-450); RED BLOOD COUNT 4.55 10^6/uL (4.00-5.40)
[2024-01-19 11:39] LABS: BLOOD UREA NITROGEN 25 MG/DL (9-23); CALCIUM LEVEL 10.4 MG/DL (8.3-10.6); CARBON DIOXIDE LEVEL 32 MMOL/L (20-31); CHLORIDE LEVEL 105 MMOL/L (98-107); CREATININE FOR GFR 0.81 MG/DL (0.55-1.30); GLOMERULAR FILTRATION RATE > 60.0 (>32); GLUCOSE, FASTING 93 MG/DL (74-106); POTASSIUM SERUM 3.6 MMOL/L (3.5-5.1); SODIUM LEVEL 142 MMOL/L (136-145)
[2024-01-19 11:42] LABS: INR 0.96; PARTIAL THROMBOPLASTIN TIME 26.6 SECONDS (24.8-34.2); PROTHROMBIN TIME 12.5 SECONDS (12.5-14.5)
[2024-01-19] MEDS ORDERED: MAGN400C PO (11:51)
[2024-01-19] MEDS ORDERED: VALS1TAB66 PO (11:51)
[2024-01-19] MEDS ORDERED: FLUO0.0216 TOP (11:51)
[2024-01-19] MEDS ORDERED: SODI1SOL4 OU (11:51)
[2024-01-19] MEDS ORDERED: MURO5OIN OU (11:51)
[2024-01-19] MEDS ORDERED: HOME MED LIST COMPLETE! XX SCH (11:55)
[2024-01-19 12:09] VITALS: BP 156/56; TEMP 96.9; O2SAT 97
[2024-01-19 12:33] VITALS: BP 141/63; O2SAT 95
[2024-01-19 15:24] VITALS: BP 154/68; TEMP 97; O2SAT 96
[2024-01-19] MEDS: ASPIRIN ENTERIC 325MG TAB PO ONE (16:45)
[2024-01-19] MEDS: CLOPIDOGREL 75 MG TAB PO SCH (18:28)
[2024-01-19] MEDS: ACETAMINOPHEN TAB 650MG DOSE (2X325MG) PO PRN (18:30)
[2024-01-20] MEDS: MORPHINE 2 MG/ML 1ML VIAL IV ONE (03:26)
[2024-01-20 05:28] LABS: HEMATOCRIT 37.4 % (36.0-47.0); HEMOGLOBIN 11.9 g/dl (12.0-15.5); MEAN CORPUSCULAR HEMOGLOBIN 26.7 pg (27.0-33.0); MEAN CORPUSCULAR HGB CONC 31.8 g/dl (32.0-36.5); MEAN CORPUSCULAR VOLUME 83.9 fl (80.0-96.0); PLATELET COUNT, AUTOMATED 180 10^3/uL (150-450); RED BLOOD COUNT 4.46 10^6/uL (4.00-5.40); WHITE BLOOD COUNT 6.8 10^3/uL (4.0-10.0)
[2024-01-20 05:51] LABS: ALBUMIN 3.6 G/DL (3.2-5.2); ALKALINE PHOSPHATASE 49 U/L (46-116); ALT/SGPT 17 U/L (7.0-40); AST/SGOT 17 U/L (<34); BILIRUBIN,TOTAL 0.4 MG/DL (0.3-1.2); BLOOD UREA NITROGEN 21 MG/DL (9-23); CALCIUM LEVEL 10.2 MG/DL (8.3-10.6); CARBON DIOXIDE LEVEL 30 MMOL/L (20-31); CHLORIDE LEVEL 106 MMOL/L (98-107); CREATININE FOR GFR 0.75 MG/DL (0.55-1.30); GLOMERULAR FILTRATION RATE > 60.0 (>32); GLUCOSE, FASTING 86 MG/DL (74-106); MAGNESIUM LEVEL 1.8 MG/DL (1.8-2.4); POTASSIUM SERUM 3.8 MMOL/L (3.5-5.1); SODIUM LEVEL 142 MMOL/L (136-145); TOTAL PROTEIN 6.5 G/DL (5.7-8.2)
[2024-01-20] MEDS ORDERED: OMEPRAZOLE 20MG CAP PO SCH (09:00)
[2024-01-20] MEDS ORDERED: VALSARTAN 80 MG TAB (DIOVAN) PO SCH (09:00)
[2024-01-20] MEDS ORDERED: hydroCHLOROthiazide 12.5 MG CAPSULE PO SCH (09:00)
[2024-01-20] MEDS: MAGNESIUM OXIDE 400MG TAB (MAG-OX) PO SCH (10:12)
[2024-01-20] MEDS: PANTOPRAZOLE 40MG TAB (PROTONIX) PO SCH (10:12)
[2024-01-20] MEDS: LEVOTHYROXINE 50MCG TABLET (0.05MG) PO SCH (10:12)
[2024-01-20] MEDS: ATORVASTATIN 10 MG TAB PO SCH (10:12)
[2024-01-20] MEDS ORDERED: ATOR1TAB21 PO (13:35)
[2024-01-20] MEDS ORDERED: CLOP75TA2 PO (13:35)
[2024-01-20] MEDS ORDERED: ASPI81TA26 PO (13:35)
[2024-01-20 14:35] VITALS: BP 139/62; TEMP 97.9; O2SAT 95
[2024-01-21] MEDS ORDERED: ATORVASTATIN 20 MG TAB PO SCH (09:00)
== END 2024-01-20 14:37 | disposition home health service (06) | DRG 69 ==
LOC: M ED 10:41 → CANBEDREQ 16:45 → M ED INP 01-20 03:37
PROVIDERS: ADMIT Hospitalist; ATTEND Student in an Organized Health Care Education/Training Program
PROC: B246ZZZ Ultrasonography of Right and Left Heart (ICD-10-PCS; principal; 2024-01-20)
DX: G45.9 Transient cerebral ischemic attack, unspecified (principal); I10 Essential (primary) hypertension; E78.5 Hyperlipidemia, unspecified; R53.1 Weakness; E03.9 Hypothyroidism, unspecified; K21.9 Gastro-esophageal reflux disease without esophagitis; D50.9 Iron deficiency anemia, unspecified; K29.70 Gastritis, unspecified, without bleeding; Z86.73 Personal history of transient ischemic attack (TIA), and cerebral infarction without residual deficits; Z79.890 Hormone replacement therapy; Z79.899 Other long term (current) drug therapy; Z66 Do not resuscitate

== ENCOUNTER → 2024-03-15 | Outpatient (CLI) | payer MEDICARE, OTHER ==
[~2024-03-15] MED LIST changes: +ASPI81TA26 PO; +ATOR1TAB21 PO; +CLOP75TA2 PO; +FLUO0.0216 TOP; +MAGN400C PO; +MURO5OIN OU; +PROHANCE 279.3MG/ML 15ML VIAL As Ordered ONE; +SODI1SOL4 OU; +VALS1TAB66 PO
== END ==
LOC: M RAD 11:49
PROVIDERS: ATTEND Nurse Practitioner Family
DX: D32.9 Benign neoplasm of meninges, unspecified (principal)
CPT/HCPCS: 70553; A9576

== ENCOUNTER → 2025-01-11 | Outpatient (REF) | payer MEDICARE, OTHER ==
[~2025-01-11] MED LIST changes: -PROHANCE 279.3MG/ML 15ML VIAL As Ordered ONE
[2025-01-11 20:16] LABS: IRON (FE) 181.0 UG/DL (50-170); PERCENT SATURATION 46.5 % (13.2-45.0)
== END ==
LOC: M LAB REF 18:00
PROVIDERS: ATTEND Internal Medicine
DX: D64.9 Anemia, unspecified (principal)

== ENCOUNTER → 2025-04-18 | Outpatient (REF) | payer MEDICARE, OTHER ==
[2025-04-18 19:01] LABS: IRON (FE) 149.0 UG/DL (50-170); PERCENT SATURATION 39.8 % (13.2-45.0)
== END ==
LOC: M LAB REF 17:54
PROVIDERS: ATTEND Internal Medicine
DX: D50.9 Iron deficiency anemia, unspecified (principal)